=== PATIENT | female | born 1945 | race Caucasian/White ===

== ENCOUNTER 2017-07-08 22:13 | Emergency (ER) | payer MEDICARE, BC ==
[2017-07-08] MEDS ORDERED: Ondansetron INJ* 2 MG/ML VIAL IV ONE (22:33)
[2017-07-08] MEDS ORDERED: fentaNYL* 50 MCG/ML 2 ML VIAL (100 MCG VIAL) IV SLOW PU ONE ×2 (22:33→23:11)
[2017-07-09] MEDS ORDERED: fentaNYL* 50 MCG/ML 2 ML VIAL (100 MCG VIAL) ONE (00:17)
[2017-07-09] MEDS ORDERED: Midazolam* 1 MG/ML 10 ML VIAL (10 MG) ONE (00:18)
[2017-07-09] MEDS ORDERED: KETAMINE HCL* 50 MG/ML 10 ML VIAL ONE (00:18)
[2017-07-09 03:55] VITALS: BP 132/64
--- NOTE | 2017-07-09 04:52 | ED ---
Sherly Pelayo Julia, scribed for Emiliano Garcia MD on 07/08/17 at 2310 . Lower Extremity - HPI Summary HPI Summary: This patient is a 71 year old F BIBA to [facility] accompanied by with a chief complaint of R hip pain since 21:30 when she twisted hip while kneeling. The patient rates the pain 10/10 in severity. Patient believes she dislocated her hip. She dislocated her hip over the summer of 2016, and reports similar symptoms. Patient had her R hip replaced. Patient last ate at 18:00 - History of Current Complaint Chief Complaint: EDExtremityLower Stated Complaint: FALL/ HIP PAIN Time Seen by Provider: 07/08/17 22:24 Hx Obtained From: Patient Mechanism Of Injury: Twisted Onset of Pain: Immediate Onset/Duration: Still Present Pain Intensity: 10 Pain Scale Used: 0-10 Numeric Timing: Constant Location: Is Discrete @ - R hip Associated Signs And Symptoms: Positive: Negative Able to Bear Weight: No - Allergies/Home Medications Allergies/Adverse Reactions: Allergies Allergy/AdvReac Type Severity Reaction Status Date / Time Adhesive Tape AdvReac Intermediate Rash And Verified 02/04/17 09:12 [Tegaderm Dressing] Itching tegaderm Allergy Rash And Uncoded 02/04/17 09:12 Itching PMH/Surg Hx/FS Hx/Imm Hx Endocrine/Hematology History: Denies: Hx Diabetes, Hx Systemic Lupus Erythematosus Cardiovascular History: Denies: Hx Congestive Heart Failure, Hx Hypertension, Hx Pacemaker/ICD Comment Only: Other Cardiovascular Problems/Disorders - PORT 09/2013 Respiratory History: Reports: Hx Pleural Effusion, Other Respiratory Problems/ Disorders - SOB ON EXCERTION, HAS BEEN ON CHEMO Denies: Hx Asthma GI History: Reports: Hx Gastroesophageal Reflux Disease, Hx Hiatal Hernia History: Denies: Hx Dialysis, Hx Renal Disease Musculoskeletal History: Reports: Other Musculoskeletal History - right hip replacement Denies: Hx Rheumatoid Arthritis Sensory History: Denies: Hx Hearing Aid Psychiatric History: Reports: Hx Depression Denies: Hx Panic Disorder - Cancer History Cancer Type, Location and Year: Left breast CA, with mets Hx Chemotherapy: Yes Hx Radiation Therapy: No - Surgical History Surgery Procedure, Year, and Place: R hip replacement 2009 [facility] [place]Hi[place] and Salvador fundoplication (GERD) 2007,R inguinal exploratory surgery,D&C, POWER PORT RIGHT CHEST WALL; Infectious Disease History: No Infectious Disease History: Denies: Traveled Outside the [place] in Last 30 Days - Social History Alcohol Use: Rare Alcohol Amount: 1-2 x per year Substance Use Type: Reports: None Hx Tobacco Use: No Smoking Status (MU): Never Smoked Tobacco Review of Systems Negative: Fever Positive: Other - R hip pain possible dislocation All Other Systems Reviewed And Are Negative: Yes Physical Exam Triage Information Reviewed: Yes Vital Signs On Initial Exam: Initial Vitals Temp Pulse Resp BP Pulse Ox 97.6 F 76 16 152/68 93 07/08/17 22:23 07/08/17 22:23 07/08/17 22:23 07/08/17 22:23 07/08/17 22:23 Vital Signs Reviewed: Yes Skin: Positive: Skin Color Reflects Adequate Perfusion Head/Face: Positive: Normal Head/Face Inspection Eyes: Positive: Normal ENT: Positive: Normal ENT inspection Cardiovascular: Positive: Normal Abdomen Description: Positive: Nontender Musculoskeletal: Positive: Other - Patient is lying on left side with r leg supported due to pain. R hip tenderness Neurological: Positive: Normal Psychiatric: Positive: Normal Procedures - Joint Reduction Joint Reduction Site: hip (R) Conscious Sedation: Yes - administered by Dr. Ulrich Pre-Procedure NV Exam: Yes - neuro intact Post Joint Reduction Film: no fracture seen - At 1:10 Patient signed consent form and agreed to procedure. ALLIs maneuver was used. Reduction was successful. Neuro exam was intact pre and post reduction. Post reduction XR reveals no fracture. Diagnostics - Vital Signs Vital Signs Temp Pulse Resp BP Pulse Ox 07/08/17 22:47 18 07/08/17 22:30 80 18 146/78 92 07/08/17 22:23 97.6 F 76 16 152/68 93 - Laboratory Lab Statement: Any lab studies that have been ordered have been reviewed, and results considered in the medical decision making process. - Radiology R Hip/Pelvis XR Radiology Interpretation Completed By: ED Physician - Superior disolcation of the R hip. R hip Radiology Interpretation Completed By: ED Physician - Reveals no fx post reduction Lower Extremity Course/Dx - Course Course Of Treatment: Patient presents with R hip pain and suspected dislocation. Patient has artifical R hip. R Hip XR reveals dislocation. Dr. Ulrich performed concious sedation.At 1:10 Patient signed consent form and agreed to procedure. ALLIs maneuver was used. Reduction was successful. Neuro exam was intact pre and post reduction. Post reduction XR reveals no fracture. Patient was given Fentanyl, Ketamine, Midazalom, and Zofran. Patient will be discharged with knee immobilizer and dx of hip dislocation. I instructed patient to follow up with her orthopedist. - Diagnoses Provider Diagnoses: Hip dislocation, right - Physician Notifications Discussed Care Of Patient With: Andrea Ulrich - anesthesia Time Discussed With Above Provider: 23:55 Instructed by Provider To: Other - Dr. Ulrich will evaluate patient when he is finished in the OR. Discharge - Discharge Plan Condition: Stable Disposition: HOME Patient Education Materials: Hip Dislocation (ED) Referrals: Gustavo Lincoln MD [Primary Care Provider] - Additional Instructions: Wear knee immobilizer. Follow up with orthopedist this week. RETURN TO THE EMERGENCY DEPARTMENT FOR CHANGING OR WORSENING SYMPTOMS. The documentation as recorded by the Sherly del rio Julia accurately reflects the service I personally performed and the decisions made by me, Emiliano Garcia MD.
--- NOTE | 2017-07-09 07:35 | RAD ---
INDICATION: Right hip pain possible dislocation. COMPARISON: Comparison is made with a prior CT of the abdomen and pelvis from February 04, 2017. TECHNIQUE: An AP view of the pelvis and frontal and lateral views of the right hip were obtained. FINDINGS: The patient is status post total right hip replacement surgery. There is superior posterior dislocation of the femoral head prosthesis. No fracture is seen. IMPRESSION: DISLOCATION OF THE FEMORAL HEAD PROSTHESES.
--- NOTE | 2017-07-09 07:39 | RAD ---
HISTORY: Post reduction COMPARISONS: July 08, 2017 at 11:36 PM VIEWS: 2, frontal views of the right hip FINDINGS: BONE DENSITY: Normal. BONES: The patient is status post right hip arthroplasty. JOINTS: The patient is status post right hip arthroplasty. ALIGNMENT: On the initial film at 1:20 AM, there is persistent superior dislocation of the femoral component of the prosthesis. On subsequent film at 1:27 AM, the alignment is near-anatomic. SOFT TISSUES: Unremarkable. OTHER FINDINGS: None. IMPRESSION: INTERVAL REDUCTION OF DISLOCATION OF RIGHT HIP PROSTHESIS
== END 2017-07-09 02:20 | disposition home or self-care (01) ==
LOC: ED 22:13
DX: S73.004A Unspecified dislocation of right hip, initial encounter (principal); M25.551 Pain in right hip; W19.XXXA Unspecified fall, initial encounter; Y92.9 Unspecified place or not applicable
CPT/HCPCS: 96374; 96375; 99285; J2250; J2405; J3010

== ENCOUNTER 2017-10-22 19:23 | Emergency (ER) | payer MEDICARE, BC ==
[2017-10-22] MEDS ORDERED: Ondansetron ODT TAB* 4 MG PO ONE (19:36)
[2017-10-22] MEDS ORDERED: Morphine INJ* 10 MG/ML 1 ML CARPUJECT IV ONE (19:36)
[2017-10-22] MEDS ORDERED: Morphine VIAL* 4 MG/ML VIAL (1 ml vial) IV ONE (19:48)
--- NOTE | 2017-10-22 20:19 | RAD ---
INDICATION: Subjective sense of a dislocated right hip COMPARISON: Similar radiograph July 14, 2017 TECHNIQUE: 3 views of the right hip were obtained. FINDINGS: The right hip prosthesis is dislocated with the femoral component dislocated posteriorly and superiorly relative to the acetabular component. There is no radiographically apparent fracture. IMPRESSION: Dislocated right hip prosthesis.
[2017-10-22] MEDS ORDERED: Midazolam* 1 MG/ML 10 ML VIAL (10 MG) ONE (20:20)
[2017-10-22] MEDS ORDERED: fentaNYL* 50 MCG/ML 2 ML VIAL (100 MCG VIAL) ONE ×2 (20:20→22:17)
[2017-10-22] MEDS ORDERED: Flumazenil* 0.1 MG/ML 5 ML MDV ONE (20:21)
[2017-10-22] MEDS ORDERED: Naloxone* 0.4 MG/ML 10 ML VIAL ONE (20:21)
--- NOTE | 2017-10-22 21:50 | RAD ---
INDICATION: Right hip dislocation COMPARISON: Most recent comparison chest x-rays dated June 24, 2017 TECHNIQUE: Single AP portable view of the chest was obtained. FINDINGS: Image quality is compromised due to the relative inferiority of a portable chest x-ray. There is a right subclavian vein Mediport with the tip terminating at the superior vena cava. The heart and mediastinum exhibit normal size and contour. There is density obscuring the central nestor bilaterally as well as obscuring the left hemidiaphragm. Visualized bones are normal for the patient's age. IMPRESSION: Chest x-ray findings are most consistent with vascular congestion possibly with pleural effusion at the left lung base.
--- NOTE | 2017-10-22 21:52 | RAD ---
INDICATION: Dislocated right hip Comparison: Similar radiograph acquired the same day at 2002 hours TECHNIQUE: An AP view of the pelvis was obtained at 2012 hours. FINDINGS: There is persistent dislocation of the right prostatic hip with the femoral head displaced superiorly relative to the acetabular pole. IMPRESSION: Dislocated right prosthetic hip.
[2017-10-22] MEDS ORDERED: Midazolam* 1 MG/ML 5 ML VIAL (5 MG) ONE (22:17)
[2017-10-22] MEDS ORDERED: KETAMINE HCL* 50 MG/ML 10 ML VIAL ONE (22:17)
[2017-10-22] MEDS ORDERED: Succinylcholine* 20 MG/ML 10 ML VIAL ONE (23:04)
[2017-10-22] MEDS ORDERED: Propofol* 10 MG/ML 20 ML BTL IV PUSH ONE (23:04)
[2017-10-23 03:49] VITALS: BP 140/83
--- NOTE | 2017-10-23 05:57 | ED ---
Julian Pelayo Rebecca, scribed for Benjamin Salas MD on 10/22/17 at 1941 . Lower Extremity - HPI Summary HPI Summary: Pt is a 72 y/o F BIBA who presents to ED c/o R hip pain. Pt was getting into her car at about 1855 when she suspects the hip dislocated. Pain is currently moderate, ranked 7/10. Sx aggravated by movement. Similar episodes 1 year ago and in 2016, though she states it does not feel as badly dislocated as it was previously. Is not on blood thinners. PSHx R hip replacement. PMHx metastatic breast CA - oncologist is Dr. Lema. - History of Current Complaint Chief Complaint: EDExtremityLower Stated Complaint: RT HIP DISLOCATION Time Seen by Provider: 10/22/17 19:31 Hx Obtained From: Patient Mechanism Of Injury: Other - Getting into car Onset of Pain: Immediate, Prior to Arrival Onset/Duration: Still Present Severity Currently: Moderate Pain Intensity: 7 Pain Scale Used: 0-10 Numeric Location: Is Discrete @ - R hip Associated Signs And Symptoms: Positive: Negative Aggravating Factor(s): Movement - Allergies/Home Medications Allergies/Adverse Reactions: Allergies Allergy/AdvReac Type Severity Reaction Status Date / Time Adhesive Tape AdvReac Intermediate Rash And Verified 02/04/17 09:12 [Tegaderm Dressing] Itching tegaderm Allergy Rash And Uncoded 02/04/17 09:12 Itching Home Medications: Home Medications Acetaminophen TAB* [Tylenol TAB*] 325 mg PO Q4H PRN 10/22/17 [History Confirmed 10/22/17] Escitalopram (NF) [Lexapro 20 mg (NF)] 20 mg PO DAILY 10/22/17 [History Confirmed 10/22/17] Letrozole (NF) [Femara (NF)] 2.5 mg PO DAILY 10/22/17 [History Confirmed ] Palbociclib [Ibrance] 75 mg PO DAILY 10/22/17 [History Confirmed 10/22/17] Prochlorperazine TAB* [Compazine Tab*] 10 mg PO DAILY 10/22/17 [History Confirmed 10/22/17] traZODone TAB* [Desyrel TAB*] 50 mg PO BEDTIME PRN 10/22/17 [History Confirmed 10/22/17] PMH/Surg Hx/FS Hx/Imm Hx Endocrine/Hematology History: Denies: Hx Diabetes, Hx Systemic Lupus Erythematosus Cardiovascular History: Denies: Hx Congestive Heart Failure, Hx Hypertension, Hx Pacemaker/ICD Comment Only: Other Cardiovascular Problems/Disorders - PORT 09/2013 Respiratory History: Reports: Hx Pleural Effusion, Other Respiratory Problems/ Disorders - SOB ON EXCERTION, HAS BEEN ON CHEMO Denies: Hx Asthma GI History: Reports: Hx Gastroesophageal Reflux Disease, Hx Hiatal Hernia History: Denies: Hx Dialysis, Hx Renal Disease Musculoskeletal History: Reports: Other Musculoskeletal History - right hip replacement Denies: Hx Rheumatoid Arthritis Sensory History: Denies: Hx Hearing Aid Psychiatric History: Reports: Hx Depression Denies: Hx Panic Disorder - Cancer History Cancer Type, Location and Year: Left breast CA, with mets Hx Chemotherapy: Yes Hx Radiation Therapy: No - Surgical History Surgery Procedure, Year, and Place: R hip replacement 2009 [facility],Hiatal hernia repair and Salvador fundoplication (GERD) 2007,R inguinal exploratory surgery,D&C, POWER PORT RIGHT CHEST WALL; Infectious Disease History: No Infectious Disease History: Denies: Traveled Outside the US in Last 30 Days - Family History Known Family History: Positive: Other - CVA, lymphoma - Social History Alcohol Use: Rare Alcohol Amount: 1-2 x per year Substance Use Type: Reports: None Hx Tobacco Use: No Smoking Status (MU): Never Smoked Tobacco Review of Systems Negative: Fever Positive: Arthralgia - R hip pain All Other Systems Reviewed And Are Negative: Yes Physical Exam - Summary Physical Exam Summary: General: well-appearing, mild pain distress Skin: warm, color reflects adequate perfusion, dry Head: normal Eyes: EOMI, MEE ENT: normal Neck: supple, nontender Respiratory: CTA, breath sounds present Cardiovascular: RRR Abdomen: soft, nontender Bowel: present Musculoskeletal: strength intact, the right leg is shortened, not externally rotated Neurological: normal, sensory/motor intact, A&O x3 Psychological: affect/mood appropriate Triage Information Reviewed: Yes Vital Signs On Initial Exam: Initial Vitals Temp Pulse Resp BP Pulse Ox 98.2 F 70 16 154/72 93 10/22/17 19:34 10/22/17 19:34 10/22/17 19:34 10/22/17 19:34 10/22/17 19:34 Vital Signs Reviewed: Yes Procedures - Joint Reduction Joint Reduction Site: hip (R) Conscious Sedation: Yes - Moderate sedation - 5 Versed, 50 fentanyl Reduction Attempts: 2 Pre-Procedure NV Exam: Yes - Intact Post Joint Reduction Film: joint not reduced Diagnostics - Vital Signs Vital Signs Temp Pulse Resp BP Pulse Ox 10/22/17 19:34 98.2 F 70 16 154/72 93 - Laboratory Lab Statement: Any lab studies that have been ordered have been reviewed, and results considered in the medical decision making process. - Radiology Hip/Pelvis XR Xray Interpretation: Positive (See Comments) - Dislocated right hip prosthesis. ED physician reviewed this radioloy report. Radiology Interpretation Completed By: Radiologist Hip/Pelvis XR #2 Xray Interpretation: Positive (See Comments) - Dislocated right prosthetic hip. ED physician reviewed this radiology report. Radiology Interpretation Completed By: Radiologist CXR Xray Interpretation: Positive (See Comments) - Chest x-ray findings are most consistent with vascular congestion possibly with pleural effusion at the left lung base. ED physician reviewed this radiology report. Radiology Interpretation Completed By: Radiologist Hip/Pelvix XR #3 Radiology Interpretation Completed By: ED Physician - Hip is in place. Re-Evaluation - Re-Evaluation First Eval Re-Evaluation Time: 20:08 Comment: Discussing XR results with the pt. Second Eval Re-Evaluation Time: 20:48 Comment: Reduction attempted Third Eval Re-Evaluation Time: 21:34 Comment: Reported that Dr. Brush did the original hip replacement. Lower Extremity Course/Dx - Course Course Of Treatment: CLOSED HIP REDUCTION ATTEMPTED UNDER MODERATE SEDATION WHICH WAS UNSUCESSFUL. DR BRUSH, ORTHOPEDICS, SAW PATIENT IN ED AND, WITH ANESTHESIA WHO USED PROPOFOL, KETAMINE, AND SUCCINYLCHOLINE WAS ABLE TO REDUCE THE HIP IN THE ED. F/U ORTHOPEDICS; RETURN IF WORSE. Assessment/Plan: Medications reviewed. Allergies reviewed. BP noted and advised to follow up with PCP. - Diagnoses Provider Diagnoses: Elevated BP without diagnosis of hypertension, Recurrent dislocation, right hip - Physician Notifications Discussed Care Of Patient With: Harrison Brush Time Discussed With Above Provider: 21:40 Instructed by Provider To: Other - Will evaluate the pt in the ED and do reduction. Discharge - Sign-Out/Discharge Documenting (check all that apply): Discharge/Admit/Transfer - Discharge - Discharge Plan Condition: Stable Disposition: HOME Patient Education Materials: Hip Dislocation (ED) Referrals: Gustavo Lincoln MD [Primary Care Provider] - [facility] [Outside] Additional Instructions: FOLLOW UP WITH YOUR ORTHOPEDIST. RETURN TO THE EMERGENCY DEPARTMENT FOR ANY WORSENING OF YOUR CONDITION OR QUESTIONS OR CONCERNS. - Billing Disposition and Condition Condition: STABLE Disposition: HOME The documentation as recorded by the Julian del rio Rebecca accurately reflects the service I personally performed and the decisions made by me, Benjamin Salas MD.
--- NOTE | 2017-10-23 07:25 | RAD ---
INDICATION: Right hip dislocation status post reduction. COMPARISON: Comparison is made with a prior x-ray study of the pelvis of the same date. TECHNIQUE: An AP view of the right hip was obtained. FINDINGS: The patient is status post total right hip replacement. There has been interval reduction of the previously noted superior dislocation of the femoral prostheses. The bones and prostheses are in normal alignment. No fracture is seen. IMPRESSION: STATUS POST EXTERNAL REDUCTION THE BONES AND PROSTHESES ARE IN NORMAL ALIGNMENT.
--- NOTE | 2017-10-23 13:41 | CONS ---
CC: Gustavo Lincoln MD * ORTHOPEDIC CONSULT REPORT: DATE OF CONSULT: 10/22/17 - EMERGENCY DEPT ATTENDING PHYSICIAN: Harrison Duarte MD CHIEF COMPLAINT: Right hip. HISTORY OF PRESENT ILLNESS: Mrs. Bryant is a 72-year-old female who I have not seen in 7 years. She had undergone a right total hip arthroplasty and had done well until this past January. She was in [place] and was stepping and moved in an odd fashion and sustained a right hip dislocation. Unfortunately, she has dislocated again since then this past June and last night had twisted again and once again dislocated. Other than the hip, nothing else does hurt. She did not fall with the dislocation as she was twisting from a sitting position when that had occurred. We talked a little bit about the hip and she reports prior to this she forgot that she even had a hip replacement and is still very pleased about having undergone surgery. When she first presented to the emergency room, the ER had tried to do some conscious sedation and had given her 5 mg of Versed and 4 mg of morphine, but her O2 sats dropped. A chest x-ray was obtained, which showed a pleural effusion, but she does have a history of this because of the metastatic breast cancer to her lungs. The ED did still try to reduce the hip, but were unsuccessful and had called me and I told him that I would head in and do the reduction. PREVIOUS MEDICAL HISTORY: Metastatic breast cancer, GERD/peptic ulcer disease. CURRENT MEDICATIONS: 1. Ibrance 100 mg. 2. Prochlorperazine maleate 10 mg. 3. Trazodone 100 mg. 4. Escitalopram oxalate 20 mg daily. 5. Letrozole 2.5 mg daily. 6. Melatonin at night. MEDICATION ALLERGIES: TAPE and TEGADERM. PHYSICAL EXAM: General: Mature female, in no apparent distress, lying on the stretcher. Even though she just had conscious sedation half an hour ago, she is awake and alert. Right leg: The right leg is shortened and externally rotated. She can easily plantar and dorsiflexion the ankle and has good sensation over the dorsum of the foot. Any sort of leg motion is painful for her. DIAGNOSTIC STUDIES/LAB: X-rays of the hip taken twice are available for review. It can be seen, she is dislocated. ASSESSMENT: Dislocated right total hip arthroplasty. PLAN: I called anesthesia and the OR team and as I felt we need to take her to the OR, but Dr. Ulrich reports that he was here when she dislocated last time will be comfortable doing this in the emergency room. New consent set was filled out and she was once again given conscious sedation. With the first round, I was unable to reduce her, but then with a little succinylcholine, I was then able to quite easily reduce her. She was then stable as I flexed and the maneuvered her. Followup x- ray was obtained, which showed the hip to be nicely dislocated. As she woke up, she reported that she felt quite good and would like to leave for [place] this evening. I wrote out a list of dislocation precautions, specifically these are the same ones that we do initially postoperatively where she should not flex the hip past 90 degrees, abduct the leg past midline, and she always has the toes pointing straight forward or outwards towards the right. I also wrote out for her that the safest position is slightly slouched with the legs abducted and the toes pointing out at the 230. Considering that, she does appear comfortable. She can go to [place]. I also discussed with her that revision of the hip is something that would help, if this continues to dislocate. Currently, she is still essentially doing all activities without any fear of the hip dislocating, this is good considering the breast cancer and what she is doing, but if this starts to interfere more, I believe trying at least a constrained hip as a components of well fixed would be a reasonable step. She will give us a call when she returns from [place] and we will see how she is doing. [id number]/[facility] #: [id number] JOSÉ
== END 2017-10-23 03:49 | disposition home or self-care (01) ==
LOC: ED 19:23
DX: M25.551 Pain in right hip (principal); R03.0 Elevated blood-pressure reading, without diagnosis of hypertension; M24.451 Recurrent dislocation, right hip; Z85.3 Personal history of malignant neoplasm of breast
CPT/HCPCS: 71045; 72170; 96374; 96375; 99285; A9270-GY; J0330; J2250; J2270; J2310; J2704; J3010

== ENCOUNTER 2019-02-22 17:41 | Emergency (ER) | payer MEDICARE, OTHER ==
--- OUTSIDE RECORDS SUMMARY | 2019-02-22 17:59 | XMS REPORT | Continuity of Care Document ---
:1945 External Reference #:[id number] Author Name Latoya Resendez Address [address] [place] [address] Care Team Providers Name Role Phone Shaun Cummings - Surgery Care Team Information Social Work Assistant [phone] Harrison Duarte MD - Orthopaedic Care Team Information Social Work Assistant Surgery [facility] Radiology Department - Diagnostic Care Team Information Social Work Assistant Radiology Cornel Joseph - Thoracic Surgery Care Team Information Social Work Assistant (Cardiothoracic Vascular Surgery) Les Richardson - Ophthalmology Care Team Information Social Work Assistant Problems Active Problems Provider Date Hyperlipidemia Gustavo Lincoln M.D. Onset: 08/21/2006 Depressive disorder Gustavo Lincoln M.D. Onset: 08/21/2006 Anxiety state Gustavo Lincoln M.D. Onset: 08/21/2006 Allergic rhinitis Gustavo Lincoln M.D. Onset: 08/21/2006 Nuclear senile cataract Gustavo Lincoln M.D. Onset: 01/31/2016 Malignant neoplasm of female breast Gustavo Lincoln M.D. Onset: 01/31/2016 Social History Type Date Description Comments Sex Unknown Tobacco Use Start: Unknown Nonsmoker ETOH Use Denies alcohol use Tobacco Use Start: Unknown Patient has never smoked Smoking Status Reviewed: 02/09/19 Patient has never smoked Allergies, Adverse Reactions, Alerts Description No Known Drug Allergies Medications Active Medications SIG Qnty Indications Ordering Date Provider Bupropion Hydrochloride 1 po qd 30tabs Marlee 02/09/2019 ER (SR) [place], Afnp-C 100mg Tablets ER 12HR Lexapro take 1 tablet 90tabs Gustavo Lincoln, 09/09/2002 20mg Tablets by mouth one M.D. time daily Compazine daily Unknown 5mg Tablets Letrozole 1 po qd Unknown 2.5mg Tablets Ibrance 21 day Unknown 75mg Capsules period-every other day Prochlorperazine Maleate take two Unknown 10mg tablets at Tablets bedtime Immunizations CPT Code Status Date Vaccine Lot # [id number] Given 09/24/2013 Pneumococcal Immunization [id number] Given 09/24/2013 Tdap Tetanus, W Pertussis [id number] Given 08/31/2004 Td Immunization, For Use In Individuals 7 Years Or Older [id number] Given 04/28/2002 DO Not Use Split Influenza Virus Vaccine Vital Signs Date Vital Result Comment 02/09/2019 3:40pm BP Systolic 100 mmHg BP Diastolic 60 mmHg Heart Rate 84 /min Body Temperature 98.6 F Respiratory Rate 16 /min Height 64.75 inches 5'4.75" Weight 202.00 lb BMI (Body Mass Index) 33.9 kg/m2 09/08/2017 4:02pm BP Systolic 110 mmHg BP Diastolic 64 mmHg Heart Rate 76 /min Body Temperature 98.5 F Respiratory Rate 20 /min Height 64.75 inches 5'4.75" Weight 221.50 lb BMI (Body Mass Index) 37.1 kg/m2 Results Test Date Facility Test Result H/L Range Note Basic Metabolic 02/09/2019 [facility](fma) Sodium 143 mEq/L 134-149 Profile Potassium 3.8 mEq/L 3.6-5.5 Chloride 106 mEq/L 94-112 Carbon Dioxide 29 mEq/L 21-32 Glucose 136 mg/dL High 70-105 1 BUN 14 mg/dL 6-26 Creatinine 0.9 mg/dL 0.6-1.4 BUN/Creat Ratio 15.6 CALC 8.0-36.0 Calcium 8.8 mg/dL 8.6-10.2 GFR Non- >60 ml/min/1.73m^ >=60 GFR >60 ml/min/1.73m^ >=60 Laboratory test finding 02/09/2019 [facility](fma) TSH 2.41 mIU/L 0.50-6.00 Free T4 1.19 ng/dL 0.75-1.54 Laboratory test 02/09/2019 [facility] Hemoglobin A1c 5.5% % 4.1- 5.7 finding (607)- - (Fma) CBC Auto Diff 01/12/2019 [facility] White Blood Count 2.0 Low 3.5-10.8 10^3/uL Red Blood Count 2.39 10^6/uL Low 3.70-4.87 Hemoglobin 9.2 g/dL Low 12.0-16.0 Hematocrit 27 % Low 35-47 Mean Corpuscular Volume 114 fL High 80-97 Mean Corpuscular Hemoglobin 39 pg High 27-31 Mean Corpuscular HGB Conc 34 g/dL Normal 31-36 Red Cell Distribution Width 19 % High 10-15 Abs Neutrophils 1.2 10^3/uL Low 1.5-7.7 Platelet Count 396 10^3/uL Normal 150-450 2 Abs Lymphocytes 0.6 10^3/uL Low 1.0-4.8 Abs Monocytes 0.2 10^3/uL Normal 0-0.8 Abs Eosinophils 0.0 10^3/uL Normal 0-0.6 Abs Basophils 0.0 10^3/uL Normal 0-0.2 Abs Nucleated RBC 0.0 10^3/uL Granulocyte % 58.2 % Lymphocyte % 27.7 % Monocyte % 10.4 % Eosinophil % 1.6 % Basophil % 2.1 % Nucleated Red Blood Cells % 0.1 Large Platelets Present Cell Morphology 01/12/2019 [facility] Macrocytosis 2+ Anisocytosis 2+ Comp Metabolic Panel 01/12/2019 [facility] Sodium 142 mmol/L Normal 135-145 Potassium 3.7 mmol/L Normal 3.5-5.0 Chloride 110 mmol/L Normal 101-111 Co2 Carbon Dioxide 26 mmol/L Normal 22-32 Anion Gap 6 mmol/L Normal 2-11 Glucose 133 mg/dL High 70-100 Blood Urea Nitrogen 16 mg/dL Normal 6-24 Creatinine 0.91 mg/dL Normal 0.51-0.95 BUN/Creatinine Ratio 17.6 Normal 8-20 Calcium 8.7 mg/dL Normal 8.6-10.3 Total Protein 6.1 g/dL Low 6.4-8.9 Albumin 3.8 g/dL Normal 3.2-5.2 Globulin 2.3 g/dL Normal 2-4 Albumin/Globulin Ratio 1.7 Normal 1-3 Total Bilirubin 0.90 mg/dL Normal 0.2-1.0 Alkaline Phosphatase 71 U/L Normal 34-104 Alt 8 U/L Normal 7-52 Ast 17 U/L Normal 13-39 Egfr Non- 60.4 >60 Egfr 73.1 >60 3 Laboratory test finding 01/12/2019 [facility] Breast Carcinoma 36.0 U/mL <= 38.0 4 Ag(Ca27.29) Anti Nuclear Antibody 0.2 U 5 CBC Auto Diff 12/08/2018 [facility] White Blood Count 2.3 10^3/uL Low 3.5-10.8 Red Blood Count 3.07 10^6/uL Low 3.70-4.87 Hemoglobin 11.1 g/dL Low 12.0-16.0 Hematocrit 34 % Low 35-47 Mean Corpuscular Volume 111 fL High 80-97 Mean Corpuscular Hemoglobin 36 pg High 27-31 Mean Corpuscular HGB Conc 33 g/dL Normal 31-36 Red Cell Distribution Width 17 % High 10-15 Platelet Count 362 10^3/uL Normal 150-450 6 Mean Platelet Volume 11.8 fL High 7.4-10.4 Manual Differential 12/08/2018 [facility] Platelet Morphology Giant Neutrophil % 54.0 % Lymphocytes % 40.0 % Monocytes % 5.0 % Eosinophils % 1.0 % Macrocytosis 2+ Abs Neutrophils 1.2 10^3/uL Low 1.5-7.7 Abs Lymphocytes 0.9 10^3/uL Low 1.0-4.8 Abs Monocytes 0.1 10^3/uL Normal 0-0.8 Abs Eosinophils 0.0 10^3/uL Normal 0-0.6 CBC Auto Diff 12/01/2018 [facility] White Blood Count 2.0 10^3/uL Low 3.5-10.8 Red Blood Count 2.94 10^6/uL Low 3.70-4.87 Hemoglobin 11.0 g/dL Low 12.0-16.0 Hematocrit 33 % Low 35-47 Mean Corpuscular Volume 111 fL High 80-97 Mean Corpuscular Hemoglobin 37 pg High 27-31 Mean Corpuscular HGB Conc 34 g/dL Normal 31-36 Red Cell Distribution Width 18 % High 10-15 Abs Neutrophils 0.8 10^3/uL Low 1.5-7.7 Abs Lymphocytes 0.9 10^3/uL Low 1.0-4.8 Abs Monocytes 0.2 10^3/uL Normal 0-0.8 Abs Eosinophils 0.0 10^3/uL Normal 0-0.6 Abs Basophils 0.0 10^3/uL Normal 0-0.2 Abs Nucleated RBC 0.0 10^3/uL Granulocyte % 39.0 % Lymphocyte % 46.9 % Monocyte % 11.3 % Eosinophil % 1.7 % Basophil % 1.1 % Nucleated Red Blood Cells % 0.1 Platelet Count 250 10^3/uL Normal 150-450 7 Mean Platelet Volume 10.3 fL Normal 7.4-10.4 Laboratory test finding 12/01/2018 [facility] Vitamin B12 151 pg/mL Low 180-914 8 Methylmalonic Acid Mma 0.16 nmol/mL <=0.40 9 Laboratory test 11/24/2018 [facility] Breast Carcinoma 28.2 U/mL <=38.0 10 finding Ag(Ca27.29) CBC Auto Diff 11/24/2018 [facility] White Blood Count 1.0 10^3/uL Low 3.5-10.8 Red Blood Count 2.57 10^6/uL Low 3.70-4.87 Hemoglobin 9.7 g/dL Low 12.0-16.0 Hematocrit 28 % Low 35-47 Mean Corpuscular Volume 110 fL High 80-97 Mean Corpuscular Hemoglobin 38 pg High 27-31 Mean Corpuscular HGB Conc 34 g/dL Normal 31-36 Red Cell Distribution Width 16 % High 10-15 Abs Neutrophils 0.4 10^3/uL Low 1.5-7.7 Abs Lymphocytes 0.4 10^3/uL Low 1.0-4.8 Abs Monocytes 0.1 10^3/uL Normal 0-0.8 Abs Eosinophils 0.0 10^3/uL Normal 0-0.6 Abs Basophils 0.0 10^3/uL Normal 0-0.2 Abs Nucleated RBC 0.0 10^3/uL Granulocyte % 40.8 % Lymphocyte % 44.2 % Monocyte % 11.7 % Eosinophil % 2.3 % Basophil % 1.0 % Nucleated Red Blood Cells % 0.3 Giant Platelets Present Large Platelets Present Platelet Count 80 10^3/uL Low 150-450 11 Mean Platelet Volume 11.9 fL High 7.4-10.4 Comp Metabolic Panel 11/24/2018 [facility] Sodium 141 mmol/L Normal 135-145 Potassium 3.6 mmol/L Normal 3.5-5.0 Chloride 108 mmol/L Normal 101-111 Co2 Carbon Dioxide 30 mmol/L Normal 22-32 Anion Gap 3 mmol/L Normal 2-11 Glucose 88 mg/dL Normal 70-100 Blood Urea Nitrogen 15 mg/dL Normal 6-24 Creatinine 0.88 mg/dL Normal 0.51-0.95 BUN/Creatinine Ratio 17.0 Normal 8-20 Calcium 8.9 mg/dL Normal 8.6-10.3 Total Protein 5.7 g/dL Low 6.4-8.9 Albumin 3.6 g/dL Normal 3.2-5.2 Globulin 2.1 g/dL Normal 2-4 Albumin/Globulin Ratio 1.7 Normal 1-3 Total Bilirubin 1.40 mg/dL High 0.2-1.0 Alkaline Phosphatase 70 U/L Normal 34-104 Alt 9 U/L Normal 7-52 Ast 18 U/L Normal 13-39 Egfr Non- 62.8 >60 Egfr 76.0 >60 12 CBC Auto Diff 10/27/2018 [facility] White Blood Count 2.3 10^3/uL Low 3.5-10.8 Red Blood Count 3.27 10^6/uL Low 3.70-4.87 Hemoglobin 11.7 g/dL Low 12.0-16.0 Hematocrit 35 % Normal 35-47 Mean Corpuscular Volume 107 fL High 80-97 Mean Corpuscular Hemoglobin 36 pg High 27-31 Mean Corpuscular HGB Conc 33 g/dL Normal 31-36 Red Cell Distribution Width 17 % High 10.5-15 Platelet Count 220 10^3/uL Normal 150-450 13 Mean Platelet Volume 11.0 fL High 7.4-10.4 Manual Differential 10/27/2018 [facility] Platelet Morphology Giant Neutrophil % 48.0 % Lymphocytes % 45.0 % Monocytes % 4.0 % Eosinophils % 2.0 % Basophil % 1.0 % Macrocytosis 1+ Polychromasia 1+ Abs Neutrophils 1.1 10^3/uL Low 1.5-7.7 Abs Lymphocytes 1.0 10^3/uL Normal 1.0-4.8 Abs Monocytes 0.1 10^3/uL Normal 0-0.8 Abs Eosinophils 0.1 10^3/uL Normal 0-0.6 Abs Basophils 0.0 10^3/uL Normal 0-0.2 Comp Metabolic Panel 10/20/2018 [facility] Sodium 142 mmol/L Normal 135-145 Potassium 3.5 mmol/L Normal 3.5-5.0 Chloride 108 mmol/L Normal 101-111 Co2 Carbon Dioxide 29 mmol/L Normal 22-32 Anion Gap 5 mmol/L Normal 2-11 Glucose 96 mg/dL Normal 70-100 Blood Urea Nitrogen 16 mg/dL Normal 6-24 Creatinine 0.90 mg/dL Normal 0.51-0.95 BUN/Creatinine Ratio 17.8 Normal 8-20 Calcium 9.0 mg/dL Normal 8.6-10.3 Total Protein 6.0 g/dL Low 6.4-8.9 Albumin 3.8 g/dL Normal 3.2-5.2 Globulin 2.2 g/dL Normal 2-4 Albumin/Globulin Ratio 1.7 Normal 1-3 Total Bilirubin 1.30 mg/dL High 0.2-1.0 Alkaline Phosphatase 67 U/L Normal 34-104 Alt 7 U/L Normal 7-52 Ast 16 U/L Normal 13-39 Egfr Non- 61.2 >60 Egfr 74.1 >60 14 CBC Auto Diff 10/20/2018 [facility] White Blood Count 1.4 10^3/uL Low 3.5-10.8 Red Blood Count 3.07 10^6/uL Low 3.70-4.87 Hemoglobin 11.3 g/dL Low 12.0-16.0 Hematocrit 33 % Low 35-47 Mean Corpuscular Volume 107 fL High 80-97 Mean Corpuscular Hemoglobin 37 pg High 27-31 Mean Corpuscular HGB Conc 34 g/dL Normal 31-36 Red Cell Distribution Width 17 % High 10.5-15 Platelet Count 81 10^3/uL Low 150-450 15 Mean Platelet Volume 11.4 fL High 7.4-10.4 Abs Neutrophils 0.5 10^3/uL Low 1.5-7.7 16 Abs Lymphocytes 0.7 10^3/uL Low 1.0-4.8 Abs Monocytes 0.2 10^3/uL Normal 0-0.8 Abs Eosinophils 0.0 10^3/uL Normal 0-0.6 Abs Basophils 0.0 10^3/uL Normal 0-0.2 Abs Nucleated RBC 0.0 10^3/uL Granulocyte % 34.8 % Lymphocyte % 49.4 % Monocyte % 12.7 % Eosinophil % 2.4 % Basophil % 0.7 % Nucleated Red Blood Cells % 0.2 Laboratory test 10/20/2018 [facility] Breast Carcinoma 24.8 U/mL <=38.0 17 finding Ag(Ca27.29) CBC Auto Diff 09/22/2018 [facility] White Blood Count 2.3 10^3/uL Low 3.5-10.8 Red Blood Count 3.46 10^6/uL Low 3.70-4.87 Hemoglobin 12.2 g/dL Normal 12.0-16.0 Hematocrit 37 % Normal 33-41 Mean Corpuscular Volume 106 fL High 80-97 Mean Corpuscular Hemoglobin 35 pg High 27-31 Mean Corpuscular HGB Conc 34 g/dL Normal 31-36 Red Cell Distribution Width 16 % High 10.5-15 Abs Nucleated RBC 0 10^3/uL Nucleated Red Blood Cells % 0.1 Platelet Count 197 10^3/uL Normal 150-450 Mean Platelet Volume 9.9 fL Normal 7.4-10.4 Manual Differential 09/22/2018 [facility] Platelet Morphology Large Neutrophil % 53 % Lymphocytes % 30 % Monocytes % 14 % Eosinophils % 3 % Abs Neutrophils 1.2 10^3/uL Low 1.5-7.7 Abs Lymphocytes 0.7 10^3/uL Low 1.0-4.8 Abs Monocytes 0.3 10^3/uL Normal 0-0.8 Abs Eosinophils 0.1 10^3/uL Normal 0-0.6 Macrocytosis 1+ Anisocytosis 1+ Comp Metabolic Panel 09/15/2018 [facility] Sodium 141 mmol/L Normal 135-145 Potassium 3.5 mmol/L Normal 3.5-5.0 Chloride 107 mmol/L Normal 101-111 Co2 Carbon Dioxide 28 mmol/L Normal 22-32 Anion Gap 6 mmol/L Normal 2-11 Glucose 115 mg/dL High 70-100 Blood Urea Nitrogen 19 mg/dL Normal 6-24 Creatinine 0.87 mg/dL Normal 0.51-0.95 BUN/Creatinine Ratio 21.8 High 8-20 Calcium 8.8 mg/dL Normal 8.6-10.3 Total Protein 6.0 g/dL Low 6.4-8.9 Albumin 3.7 g/dL Normal 3.2-5.2 Globulin 2.3 g/dL Normal 2-4 Albumin/Globulin Ratio 1.6 Normal 1-3 Total Bilirubin 1.00 mg/dL Normal 0.2-1.0 Alkaline Phosphatase 75 U/L Normal 34-104 Alt 6 U/L Low 7-52 Ast 15 U/L Normal 13-39 Egfr Non- 63.6 >60 Egfr 77.0 >60 18 CBC Auto Diff 09/15/2018 [facility] White Blood Count 1.5 10^3/uL Low 3.5-10.8 Red Blood Count 3.41 10^6/uL Low 3.70-4.87 Hemoglobin 12.4 g/dL Normal 12.0-16.0 Hematocrit 36 % Normal 33-41 Mean Corpuscular Volume 106 fL High 80-97 Mean Corpuscular Hemoglobin 36 pg High 27-31 Mean Corpuscular HGB Conc 34 g/dL Normal 31-36 Red Cell Distribution Width 15 % Normal 10.5-15 Platelet Count 73 10^3/uL Low 150-450 Mean Platelet Volume 8.9 fL Normal 7.4-10.4 Abs Neutrophils 0.7 10^3/uL Low 1.5-7.7 Abs Lymphocytes 0.6 10^3/uL Low 1.0-4.8 Abs Monocytes 0.2 10^3/uL Normal 0-0.8 Abs Eosinophils 0 10^3/uL Normal 0-0.6 Abs Basophils 0 10^3/uL Normal 0-0.2 Abs Nucleated RBC 0 10^3/uL Granulocyte % 46.4 % Lymphocyte % 39.2 % Monocyte % 11.3 % Eosinophil % 1.4 % Basophil % 1.7 % Nucleated Red Blood Cells % 0.1 Laboratory test finding 09/15/2018 [facility] Pathologist Review (SEE NOTE) 19 Breast Carcinoma Ag(Ca27.29) 25.7 U/mL <=38.0 20 CBC Auto Diff 08/18/2018 [facility] White Blood Count 2.8 10^3/uL Low 3.5-10.8 Red Blood Count 3.61 10^6/uL Low 4.00-5.40 Hemoglobin 12.9 g/dL Normal 12.0-16.0 Hematocrit 38 % Normal 35-47 Mean Corpuscular Volume 105 fL High 80-97 Mean Corpuscular Hemoglobin 36 pg High 27-31 Mean Corpuscular HGB Conc 34 g/dL Normal 31-36 Red Cell Distribution Width 16 % High 10.5-15 Abs Neutrophils 1.2 10^3/uL Low 1.5-7.7 Platelet Count 276 10^3/uL Normal 150-450 21 Mean Platelet Volume 11.4 fL High 7.4-10.4 Abs Lymphocytes 1.0 10^3/uL Normal 1.0-4.8 Abs Monocytes 0.4 10^3/uL Normal 0-0.8 Abs Eosinophils 0.1 10^3/uL Normal 0-0.6 Abs Basophils 0.1 10^3/uL Normal 0-0.2 Granulocyte % 43.1 % Lymphocyte % 36.6 % Monocyte % 13.1 % Eosinophil % 3.8 % Basophil % 3.4 % 1 NON-FASTING 2 Platelet count confirmed by estimate 3 Because ethnic data is not always readily available, this report includes an eGFR for both -Americans and non- Americans. The National Kidney Disease Education Program (NKDEP) does not endorse the use of the MDRD equation for patients that are not between the ages of 18 and 70, are , have extremes of body size, muscle mass, or nutritional status, or are non- or non-. According to the National Kidney Foundation, irrespective of diagnosis, the stage of the disease is based on the level of kidney function: Stage Description GFR(mL/min/1.73 m(2)) 1 Kidney damage with normal or decreased GFR 90 2 Kidney damage with mild decrease in GFR 60-89 3 Moderate decrease in GFR 30-59 4 Severe decrease in GFR 15-29 5 Kidney failure <15 (or dialysis) 4 ADDITIONAL INFORMATION The testing method is a chemiluminometric immunoassay manufactured by [employer] and performed on the [email or web address]. Values obtained with different assay methods or kits may be different and cannot be used interchangeably. Test results cannot be interpreted as absolute evidence for the presence or absence of malignant disease. Test Performed by: [address] [id number] 5 REFERENCE VALUE <=1.0 (Negative) Test Performed by: [facility] [address] [place] [address] 6 Platelet count confirmed by estimate 7 Platelets Giant Platelet count confirmed by estimate 8 Normal Range 180 to 914 Indeterminate Range 145 to 180 Deficient Range <145 9 ADDITIONAL INFORMATION This test was developed and its performance characteristics determined by [facility] in a manner consistent with CLIA requirements. This test has not been cleared or approved by the U.S. Food and Drug Administration. Test Performed by: [facility] [address] [place] [address] 10 ADDITIONAL INFORMATION The testing method is a chemiluminometric immunoassay manufactured by [employer] and performed on the [employer]'s [employer]. Values obtained with different assay methods or kits may be different and cannot be used interchangeably. Test results cannot be interpreted as absolute evidence for the presence or absence of malignant disease. Test Performed by: [facility] - [address] [address] 11 Platelet count confirmed by estimate 12 Because ethnic data is not always readily available, this report includes an eGFR for both -Americans and non- Americans. The National Kidney Disease Education Program (NKDEP) does not endorse the use of the MDRD equation for patients that are not between the ages of 18 and 70, are , have extremes of body size, muscle mass, or nutritional status, or are non- or non-. According to the National Kidney Foundation, irrespective of diagnosis, the stage of the disease is based on the level of kidney function: Stage Description GFR(mL/min/1.73 m(2)) 1 Kidney damage with normal or decreased GFR 90 2 Kidney damage with mild decrease in GFR 60-89 3 Moderate decrease in GFR 30-59 4 Severe decrease in GFR 15-29 5 Kidney failure <15 (or dialysis) 13 Platelets Large Platelet count confirmed by estimate 14 Because ethnic data is not always readily available, this report includes an eGFR for both -Americans and non- Americans. The National Kidney Disease Education Program (NKDEP) does not endorse the use of the MDRD equation for patients that are not between the ages of 18 and 70, are , have extremes of body size, muscle mass, or nutritional status, or are non- or non-. According to the National Kidney Foundation, irrespective of diagnosis, the stage of the disease is based on the level of kidney function: Stage Description GFR(mL/min/1.73 m(2)) 1 Kidney damage with normal or decreased GFR 90 2 Kidney damage with mild decrease in GFR 60-89 3 Moderate decrease in GFR 30-59 4 Severe decrease in GFR 15-29 5 Kidney failure <15 (or dialysis) 15 Consistent with Previous Results Reported on 09/15/18 16 Consistent with Previous Results Reported on 09/15/18 17 ADDITIONAL INFORMATION The testing method is a chemiluminometric immunoassay manufactured by [employer] and performed on the [employer]'s [employer]. Values obtained with different assay methods or kits may be different and cannot be used interchangeably. Test results cannot be interpreted as absolute evidence for the presence or absence of malignant disease. Test Performed by: [address] [address] 18 Because ethnic data is not always readily available, this report includes an eGFR for both -Americans and non- Americans. The National Kidney Disease Education Program (NKDEP) does not endorse the use of the MDRD equation for patients that are not between the ages of 18 and 70, are , have extremes of body size, muscle mass, or nutritional status, or are non- or non-. According to the National Kidney Foundation, irrespective of diagnosis, the stage of the disease is based on the level of kidney function: Stage Description GFR(mL/min/1.73 m(2)) 1 Kidney damage with normal or decreased GFR 90 2 Kidney damage with mild decrease in GFR 60-89 3 Moderate decrease in GFR 30-59 4 Severe decrease in GFR 15-29 5 Kidney failure <15 (or dialysis) 19 Macrocytic anemia. Absolute neutropenia. Reviewed by Katia Golden MD 20 ADDITIONAL INFORMATION The testing method is a chemiluminometric immunoassay manufactured by [employer] and performed on the [email or web address]. Values obtained with different assay methods or kits may be different and cannot be used interchangeably. Test results cannot be interpreted as absolute evidence for the presence or absence of malignant disease. Test Performed by: [address] [id number] 21 Platelet count confirmed by estimate Procedures Date Code Description Status 09/17/2013 41644111 Mammogram Completed 09/27/2004 [id number] Colonoscopy Completed Medical Devices Description No Information Available Encounters Description No Information Available Assessments Date Code Description Provider 02/09/2019 F33.8 Other recurrent depressive disorders Rosi Resendez 02/09/2019 R53.83 Other fatigue Latoya Resendez Plan of Treatment Future Appointment(s):03/16/2019 11:00 am - Latoya Resendez at [id number]/09/2019 - Elba ResendezCF33.8 Other recurrent depressive [id number] Other fatigueAllNew Medication:Bupropion Hydrochloride ER (SR) 100 mg - 1 po qdComments:Medication Management Patient Understands medications she's taking? Yes No Are there Barriers to Adherence? Yes No Has the patient been asked about herbal supplements and therapies, and OTC meds? Yes No Care Plan1. Patient has been queried about patient's goals/ preferences and functional/lifestyle goals at relevant visits. If relevant, describe: na2. Treatment goals as explained to the patient: abovefurther eval and treatment of sx 3. Are there barriers to meeting treatment goals? Yes No If Yes, please describe:4. Self-Management goals as described to thepatient: Yes No I willcheck some labs as your sugar has been elevated in past , also your thyroid function we can try bupropion qd and follow pending labs and by phone or ov in 4 -6 weeks Functional Status Description No Information Available Mental Status Description No Information Available Referrals Description No Information Available
--- OUTSIDE RECORDS SUMMARY | 2019-02-22 17:59 | XMS REPORT | Continuity of Care Document ---
:1945 External Reference #:[id number] Author Name Latoya Resendez Address [address] [place] [address] Care Team Providers Name Role Phone Shaun Cummings - Surgery Care Team Information Sheet Metal Pattern Cutter [phone] Harrison Duarte MD - Orthopaedic Care Team Information Sheet Metal Pattern Cutter Surgery [facility] Radiology Department - Diagnostic Care Team Information Sheet Metal Pattern Cutter [phone] Radiology Cornel Joseph - Thoracic Surgery Care Team Information Sheet Metal Pattern Cutter (Cardiothoracic Vascular Surgery) Les Richardson - Ophthalmology Care Team Information Sheet Metal Pattern Cutter [phone] Problems Active Problems Provider Date Hyperlipidemia Gustavo [...] CPT Code Status Date Vaccine Lot # 71365 Given 09/24/2013 Pneumococcal Immunization [id number] Given 09/24/2013 Tdap Tetanus, W Pertussis [id number] Given 08/31/2004 Td Immunization, For Use In Individuals 7 Years Or Older 18555 Given 04/28/2002 DO Not Use Split Influenza [...] Date Facility Test Result H/L Range Note CBC Auto Diff 01/12/2019 [facility] White Blood Count 2.0 10^3/uL Low 3.5-10.8 Red Blood Count 2.39 10^6/uL Low 3.70-4.87 Hemoglobin 9.2 g/dL Low 12.0-16.0 Hematocrit 27 % Low 35-47 Mean Corpuscular Volume 114 fL High 80-97 Mean Corpuscular Hemoglobin 39 pg High 27-31 Mean Corpuscular HGB Conc 34 g/dL Normal 31-36 Red Cell Distribution Width 19 % High 10-15 Abs Neutrophils 1.2 10^3/uL Low 1.5-7.7 Platelet Count 396 10^3/uL Normal 150-450 1 Abs Lymphocytes 0.6 10^3/uL Low 1.0-4.8 Abs Monocytes 0.2 10^3/uL Normal 0-0.8 Abs Eosinophils 0.0 10^3/uL Normal 0-0.6 Abs Basophils 0.0 10^3/uL Normal 0-0.2 Abs Nucleated RBC 0.0 10^3/uL Granulocyte % 58.2 % Lymphocyte % 27.7 % Monocyte % 10.4 % Eosinophil % 1.6 % Basophil % 2.1 % Nucleated Red Blood Cells % 0.1 Large Platelets Present Cell Morphology 01/12/2019 [facility] Macrocytosis 2+ Anisocytosis 2+ Comp Metabolic Panel 01/12/2019 [facility] Sodium 142 mmol/L Normal 135-145 Potassium 3.7 [...] Egfr Non- 60.4 >60 Egfr 73.1 >60 2 Laboratory test finding 01/12/2019 [facility] Breast Carcinoma 36.0 U/mL <= 38.0 3 Ag(Ca27.29) Anti Nuclear Antibody 0.2 U 4 CBC Auto Diff 12/08/2018 [facility] White Blood Count 2.3 10^3/uL Low 3.5-10.8 Red Blood Count 3.07 10^6/uL Low 3.70-4.87 Hemoglobin 11.1 g/dL Low 12.0-16.0 Hematocrit 34 % Low 35-47 Mean Corpuscular Volume 111 fL High 80-97 Mean Corpuscular Hemoglobin 36 pg High 27-31 Mean Corpuscular HGB Conc 33 g/dL Normal 31-36 Red Cell Distribution Width 17 % High 10-15 Platelet Count 362 10^3/uL Normal 150-450 5 Mean Platelet Volume 11.8 fL High 7.4-10.4 Manual Differential 12/08/2018 [facility] Platelet Morphology Giant Neutrophil % 54.0 % Lymphocytes % 40.0 % Monocytes % 5.0 % Eosinophils % 1.0 % Macrocytosis 2+ Abs Neutrophils 1.2 10^3/uL Low 1.5-7.7 Abs Lymphocytes 0.9 10^3/uL Low 1.0-4.8 Abs Monocytes 0.1 10^3/uL Normal 0-0.8 Abs Eosinophils 0.0 10^3/uL Normal 0-0.6 CBC Auto Diff 12/01/2018 [facility] White Blood Count 2.0 10^3/uL Low 3.5-10.8 [...] 0.1 Platelet Count 250 10^3/uL Normal 150-450 6 Mean Platelet Volume 10.3 fL Normal 7.4-10.4 Laboratory test finding 12/01/2018 [facility] Vitamin B12 151 pg/mL Low 180-914 7 Methylmalonic Acid Mma 0.16 nmol/mL <=0.40 8 Comp Metabolic Panel 11/24/2018 [facility] Sodium 141 mmol/L Normal 135-145 Potassium 3.6 [...] Egfr Non- 62.8 >60 Egfr 76.0 >60 9 CBC Auto Diff 11/24/2018 [facility] White Blood Count 1.0 10^3/uL Low 3.5-10.8 [...] Present Platelet Count 80 10^3/uL Low 150-450 10 Mean Platelet Volume 11.9 fL High 7.4-10.4 Laboratory test finding 11/24/2018 [facility] Breast Carcinoma 28.2 U/mL <= 38.0 11 Ag(Ca27.29) Manual Differential 10/27/2018 [facility] Platelet Morphology Giant Neutrophil % 48.0 % Lymphocytes % 45.0 % Monocytes % 4.0 % Eosinophils % 2.0 % Basophil % 1.0 % Macrocytosis 1+ Polychromasia 1+ Abs Neutrophils 1.1 10^3/uL Low 1.5-7.7 Abs Lymphocytes 1.0 10^3/uL Normal 1.0-4.8 Abs Monocytes 0.1 10^3/uL Normal 0-0.8 Abs Eosinophils 0.1 10^3/uL Normal 0-0.6 Abs Basophils 0.0 10^3/uL Normal 0-0.2 CBC Auto Diff 10/27/2018 [facility] White Blood Count 2.3 10^3/uL Low 3.5-10.8 Red Blood Count 3.27 10^6/uL Low 3.70-4.87 Hemoglobin 11.7 g/dL Low 12.0-16.0 Hematocrit 35 % Normal 35-47 Mean Corpuscular Volume 107 fL High 80-97 Mean Corpuscular Hemoglobin 36 pg High 27-31 Mean Corpuscular HGB Conc 33 g/dL Normal 31-36 Red Cell Distribution Width 17 % High 10.5-15 Platelet Count 220 10^3/uL Normal 150-450 12 Mean Platelet Volume 11.0 fL High 7.4-10.4 Comp Metabolic Panel 10/20/2018 [facility] Sodium 142 mmol/L Normal 135-145 Potassium 3.5 [...] Egfr Non- 61.2 >60 Egfr 74.1 >60 13 CBC Auto Diff 10/20/2018 [facility] White Blood Count 1.4 10^3/uL Low 3.5-10.8 Red Blood Count 3.07 10^6/uL Low 3.70-4.87 Hemoglobin 11.3 g/dL Low 12.0-16.0 Hematocrit 33 % Low 35-47 Mean Corpuscular Volume 107 fL High 80-97 Mean Corpuscular Hemoglobin 37 pg High 27-31 Mean Corpuscular HGB Conc 34 g/dL Normal 31-36 Red Cell Distribution Width 17 % High 10.5-15 Platelet Count 81 10^3/uL Low 150-450 14 Mean Platelet Volume 11.4 fL High 7.4-10.4 Abs Neutrophils 0.5 10^3/uL Low 1.5-7.7 15 Abs Lymphocytes 0.7 10^3/uL Low 1.0-4.8 Abs Monocytes 0.2 10^3/uL Normal 0-0.8 Abs Eosinophils 0.0 10^3/uL Normal 0-0.6 Abs Basophils 0.0 10^3/uL Normal 0-0.2 Abs Nucleated RBC 0.0 10^3/uL Granulocyte % 34.8 % Lymphocyte % 49.4 % Monocyte % 12.7 % Eosinophil % 2.4 % Basophil % 0.7 % Nucleated Red Blood Cells % 0.2 Laboratory test 10/20/2018 [facility] Breast Carcinoma 24.8 U/mL <=38.0 16 finding Ag(Ca27.29) CBC Auto Diff 09/22/2018 [facility] White Blood Count 2.3 10^3/uL Low 3.5-10.8 [...] 9.9 fL Normal 7.4-10.4 Manual Differential 09/22/2018 [facility] Platelet Morphology Large Neutrophil % 53 % Lymphocytes % 30 % Monocytes % 14 % Eosinophils % 3 % Abs Neutrophils 1.2 10^3/uL Low 1.5-7.7 Abs Lymphocytes 0.7 10^3/uL Low 1.0-4.8 Abs Monocytes 0.3 10^3/uL Normal 0-0.8 Abs Eosinophils 0.1 10^3/uL Normal 0-0.6 Macrocytosis 1+ Anisocytosis 1+ Comp Metabolic Panel 09/15/2018 [facility] Sodium 141 mmol/L Normal 135-145 Potassium 3.5 [...] Egfr Non- 63.6 >60 Egfr 77.0 >60 17 CBC Auto Diff 09/15/2018 [facility] White Blood Count 1.5 10^3/uL Low 3.5-10.8 [...] Cells % 0.1 Laboratory test finding 09/15/2018 [facility] Pathologist Review (SEE NOTE) 18 Breast Carcinoma Ag(Ca27.29) 25.7 U/mL <=38.0 19 CBC Auto Diff 08/18/2018 [facility] White Blood Count 2.8 10^3/uL Low 3.5-10.8 [...] 1.5-7.7 Platelet Count 276 10^3/uL Normal 150-450 20 Mean Platelet Volume 11.4 fL High 7.4-10.4 Abs Lymphocytes 1.0 10^3/uL Normal 1.0-4.8 Abs Monocytes 0.4 10^3/uL Normal 0-0.8 Abs Eosinophils 0.1 10^3/uL Normal 0-0.6 Abs Basophils 0.1 10^3/uL Normal 0-0.2 Granulocyte % 43.1 % Lymphocyte % 36.6 % Monocyte % 13.1 % Eosinophil % 3.8 % Basophil % 3.4 % 1 Platelet count confirmed by estimate 2 Because ethnic data is not always readily [...] 15-29 5 Kidney failure <15 (or dialysis) 3 ADDITIONAL INFORMATION The testing method is a chemiluminometric immunoassay manufactured by [employer] and performed on the [employer]'s Karisma [employer]. Values obtained with different assay methods or kits may be different and cannot be used interchangeably. Test results cannot be interpreted as absolute evidence for the presence or absence of malignant disease. Test Performed by: [facility] [address] [place] [address] 4 REFERENCE VALUE <=1.0 (Negative) Test Performed by: [facility] [address] [place] [address] 5 Platelet count confirmed by estimate 6 Platelets Giant Platelet count confirmed by estimate 7 Normal Range 180 to 914 Indeterminate Range 145 to 180 Deficient Range <145 8 ADDITIONAL INFORMATION This test was developed and its performance characteristics determined by [facility] in a manner consistent with CLIA requirements. This test has not been cleared or approved by the U.S. Food and Drug Administration. Test Performed by: [address] [address] 9 Because ethnic data is not always readily [...] 15-29 5 Kidney failure <15 (or dialysis) 10 Platelet count confirmed by estimate 11 ADDITIONAL INFORMATION The testing method is a chemiluminometric immunoassay manufactured by [employer] and performed on the [employer]'s [employer]. Values obtained with different assay methods or kits may be different and cannot be used interchangeably. Test results cannot be interpreted as absolute evidence for the presence or absence of malignant disease. Test Performed by: [address] [id number] 12 Platelets Large Platelet count confirmed by estimate 13 Because ethnic data is not always readily [...] 15-29 5 Kidney failure <15 (or dialysis) 14 Consistent with Previous Results Reported on 09/15/18 15 Consistent with Previous Results Reported on 09/15/18 16 ADDITIONAL INFORMATION The testing method is a chemiluminometric immunoassay manufactured by [employer] and performed on the [employer] Cent[employer]. Values obtained with different assay methods or kits may be different and cannot be used interchangeably. Test results cannot be interpreted as absolute evidence for the presence or absence of malignant disease. Test Performed by: [address] [address] 17 Because ethnic data is not always readily [...] 15-29 5 Kidney failure <15 (or dialysis) 18 Macrocytic anemia. Absolute neutropenia. Reviewed by Katia Golden MD 19 ADDITIONAL INFORMATION The testing method is a chemiluminometric immunoassay manufactured by [employer] and performed on the [employer]. Values obtained with different assay methods or kits may be different and cannot be used interchangeably. Test results cannot be interpreted as absolute evidence for the presence or absence of malignant disease. Test Performed by: [address] [id number] 20 Platelet count confirmed by estimate Procedures Date Code Description Status 09/17/2013 [id number] Mammogram Completed 09/27/2004 [id number] Colonoscopy Completed Medical Devices Description No Information Available Encounters Description No Information Available Assessments Date Code Description Provider 02/09/2019 F33.8 Other recurrent depressive disorders Rosi Resendez 02/09/2019 R53.83 Other fatigue Latoya Resendez Plan of Treatment Future Appointment(s):03/16/2019 11:00 am - Latoya Resendez at [facility]/09/2019 - Rosi Resendez-CF33.8 Other recurrent depressive [id number] Other fatigueAllNew Medication:Bupropion Hydrochloride ER (SR) 100 [...] as described to thepatient: Yes No I zachery check some labs as your sugar has been elevated in bpst , also your thyroid function we can try bupropion qd and follow pending labs and by phone or ov in 4 -6 weeks Functional Status Description No Information Available Mental Status Description No Information Available Referrals Description No Information Available
[2019-02-22] MEDS ORDERED: Morphine 4 MG/ML VIAL (1 ml) 4 MG/ML VIAL IV ONE (18:01)
[2019-02-22] MEDS ORDERED: Ondansetron INJ* 2 MG/ML VIAL IV ONE (18:01)
--- NOTE | 2019-02-22 18:08 | ED ---
Lower Extremity - HPI Summary HPI Summary: This patient is a 73 year old female presenting to [facility] with a chief complaint of right hip injury. The patient states she was getting into a car when she felt a pop in her right hip. She has hx. of total hip approx 7 years ago, with 4 spontaneous dislocations in the past 2 years. She reports this feels the same as the previous dislocations. Pt denies any fever, chills, erythema of eyes, sore throat, CP, SOB, cough, abdominal pain, N/V, dysuria, hematuria, myalgia, edema, rash, or dizziness. - History of Current Complaint Chief Complaint: EDHipPelvisInjury Stated Complaint: RT HIP PAIN PER EMS Time Seen by Provider: 02/22/19 18:01 Hx Obtained From: Patient Onset of Pain: Prior to Arrival Pain Intensity: 10 Pain Scale Used: 0-10 Numeric Timing: Constant - Allergies/Home Medications Allergies/Adverse Reactions: Allergies Allergy/AdvReac Type Severity Reaction Status Date / Time Adhesive Tape AdvReac Intermediate Rash And Verified 02/04/17 09:12 [Tegaderm Dressing] Itching tegaderm Allergy Rash And Uncoded 02/04/17 09:12 Itching Home Medications: Home Medications Pramipexole Di-HCl [Pramipexole Dihydrochlori] 0.125 mg PO BEDTIME 02/22/19 [ History Confirmed 02/22/19] buPROPion HCl [Bupropion HCl Sr] 100 mg PO DAILY 02/22/19 [History Confirmed 03/04] PMH/Surg Hx/FS Hx/Imm Hx Endocrine/Hematology History: Denies: Hx Diabetes, Hx Systemic Lupus Erythematosus Cardiovascular History: Denies: Hx Congestive Heart Failure, Hx Hypertension, Hx Pacemaker/ICD Comment Only: Other Cardiovascular Problems/Disorders - PORT 09/2013 Respiratory History: Reports: Hx Pleural Effusion, Other Respiratory Problems/ Disorders - SOB ON EXCERTION, HAS BEEN ON CHEMO Denies: Hx Asthma GI History: Reports: Hx Gastroesophageal Reflux Disease, Hx Hiatal Hernia History: Denies: Hx Dialysis, Hx Renal Disease Musculoskeletal History: Reports: Other Musculoskeletal History - right hip replacement Denies: Hx Rheumatoid Arthritis Sensory History: Denies: Hx Hearing Aid Psychiatric History: Reports: Hx Depression Denies: Hx Panic Disorder - Cancer History Cancer Type, Location and Year: Left breast CA, with mets Hx Chemotherapy: Yes Hx Radiation Therapy: No - Surgical History Surgery Procedure, Year, and Place: R hip replacement 2009 [facility],Hiatal hernia repair and Salvador fundoplication (GERD) 2008,R inguinal exploratory surgery,[facility], POWER PORT RIGHT CHEST WALL; Infectious Disease History: No Infectious Disease History: Denies: Traveled Outside the [place] in Last 30 Days - Family History Known Family History: Positive: Other - CVA, lymphoma - Social History Alcohol Use: None Alcohol Amount: 1-2 x per year Substance Use Type: Reports: None Hx Tobacco Use: No Smoking Status (MU): Never Smoked Tobacco Review of Systems Negative: Fever, Chills Negative: Erythema Negative: Sore Throat Negative: Chest Pain Negative: Shortness Of Breath, Cough Negative: Abdominal Pain, Vomiting, Nausea Negative: dysuria, hematuria Positive: Other - Right hip pain Negative: Rash Neurological: Other - Neg: Dizziness All Other Systems Reviewed And Are Negative: No Physical Exam - Summary Physical Exam Summary: Constitutional: Well-developed, Well-nourished, Alert, Cooperative Skin: Warm, Dry HENT: Normocephalic; No Racoons eyes; No rosales's sign; No abrasion; No contusion; No hemotympanum; No maxilla facial tenderness or instability; Dentition are smooth; No dental trauma; No trismus Eyes: EOM normal, PERRL Neck: Trachea is midline. No stridor; No JVD; No step off; No posterior cervical spine tenderness Cardio: Rhythm regular, rate normal Heart sounds normal; Intact distal pulses; The pedal pulses are 2+ and symmetric. Radial pulses are 2+ and symmetric. Pulmonary/Chest wall: Effort normal; Breath sounds normal; Equal chest rise; No flail segment; No rib tenderness; No sternal tenderness Abd: Soft, Appearance normal. No distension; No tenderness; No palpable pulsatile mass; No Cullens sign; No Maldonado-Turners sign Musculoskeletal: Full ROM and no tenderness ankles, shoulders, elbows and knees ; No joint swelling; No vertebral body tenderness; No paraspinal tenderness; No step off or deformity of the spine; Pelvis is stable to lateral compression and rock. Shortened externally rotated right hip. Neuro: Alert, Oriented x3, Strength 5/5 all extremities. : No blood at urethral meatus Psych: Mood and affect Normal Triage Information Reviewed: Yes Vital Signs On Initial Exam: Initial Vitals Temp Pulse Resp BP Pulse Ox 97 F 70 16 122/61 97 02/22/19 17:49 02/22/19 17:49 02/22/19 17:49 02/22/19 17:49 02/22/19 17:49 Vital Signs Reviewed: Yes Procedures - Joint Reduction Right Joint Reduction Site: hip (R) Conscious Sedation: No Post Joint Reduction Film: joint reduced Diagnostics - Vital Signs Vital Signs Temp Pulse Resp BP Pulse Ox 02/22/19 17:49 97 F 70 16 122/61 97 - Laboratory Result Diagrams: 02/22/19 18:41 02/22/19 18:37 Lab Statement: Any lab studies that have been ordered have been reviewed, and results considered in the medical decision making process. Re-Evaluation - Re-Evaluation First Eval Re-Evaluation Time: 20:08 Change: Improved Comment: Patient is still in progress of waking up following procedural sedation but is beginning to be more arousable. Second Eval Re-Evaluation Time: 20:55 Change: Improved Comment: I have discussed results with the patient, and she has significant improvement following the procedural sedation performed by Dr. Santa prior to shift change. Discussed symptoms that warrant immediate return to ED. Lower Extremity Course/Dx - Course Course Of Treatment: This patient is a 73 year old female presenting to [facility] with a chief complaint of right hip injury. Physical exam was remarkable for hip dislocation. A joint reduction procedure was performed on the hip. PROCEDURE NOTE. PROCEDURE NAME: PROCEDURAL SEDATION. INDICAITON: R HIP DISLOCATION. PROCEDURALIST: WILLIAM CHAMBERS. SEDATION PROVIDER: FLO SANTA MD. DETAILS: Informed consent including the risks and benefits of the procedure , including apnea and hypotension were accepted by the patient. Emergency airway equipment was immediately available at the bedside. Respiratory therapy was present. The sedation. End-tidal capnography was utilized. A total of 110 mg of IV propofol was utilized in 3 aliquots. Patient began moving the extremity spontaneously after the first sedation, believed that she actually self reduced. This was disproven when she awoke and was still in pain, she was sedated again, and a successful reduction was undertaken. The course of sedation was otherwise uneventful. She had no hypoxia or apnea. This patient will be signed out to Dr. Rodriguez pending sobriety at shift change 1900. - Diagnoses Provider Diagnoses: Recurrent dislocation, right hip Discharge ED - Sign-Out/Discharge Documenting (check all that apply): Patient Departure Signing out patient TO: Lili Rodriguez - At shift change 1900 pending sobriety. Patient Received Moderate/Deep Sedation with Procedure: Yes - Discharge Plan Condition: Stable Disposition: HOME Patient Education Materials: Moderate Sedation (ED), Hip Dislocation (ED) Referrals: Gustavo Lincoln MD [Primary Care Provider] - 3 Days Additional Instructions: Please follow up with your primary care physician within three days. Please return to ED for any new or worsening symptoms. - Billing Disposition and Condition Condition: STABLE Disposition: Home - Attestation Statements Document Initiated by Tk: Yes Documenting Scribe: Ernst Girard Provider For Whom Tk is Documenting (Include Credential): Flo Santa MD Scribe Attestation: Ernst Pelayo, scribed for Flo Santa MD on 03/05/19 at 1150. Scribe Documentation Reviewed: Yes Provider Attestation: The documentation as recorded by the Ernst del rio accurately reflects the service I personally performed and the decisions made by Flo mack MD Status of Scribe Document: Viewed
[2019-02-22] MEDS ORDERED: Propofol* 10 MG/ML 20 ML BTL IV PUSH ONE (18:32)
[2019-02-22] MEDS ORDERED: Propofol* 500 MG/50 ML BTL ONE (18:36)
[2019-02-22 18:51] LABS: Hematocrit 27 % (35-47); Hemoglobin 8.9 g/dL (12.0-16.0); Mean Corpuscular HGB Conc 33 g/dL (31-36); Mean Corpuscular Hemoglobin 36 pg (27-31); Mean Corpuscular Volume 111 fL (80-97); Mean Platelet Volume 11.6 fL (7.4-10.4); Platelet Count 542 10^3/uL (150-450); Red Blood Count 2.45 10^6 /uL (3.70-4.87); Red Cell Distribution Width 23 % (10-15); White Blood Count 3.5 10^3/uL (3.5-10.8)
[2019-02-22 19:07] LABS: Albumin 3.8 g/dL (3.2-5.2); BUN/Creatinine Ratio 18.5 (8-20); Calcium 8.7 mg/dL (8.6-10.3); EGFR African American 72.2 (>60); EGFR Non-African American 59.7 (>60); Globulin 1.9 g/dL (2-4); Potassium 4.1 mmol/L (3.5-5.0); Total Bilirubin 1.3 mg/dL (0.2-1.0); Total Protein 5.7 g/dL (6.4-8.9)
--- NOTE | 2019-02-22 19:20 | ED ---
Progress - Progress Note Progress Note: The patient is a sign-out from Dr. Flo Santa MD, to Dr. Lili Rodriguez MD, at change of shift at 1900 on 02/22/2019, pending improvement of procedural sedation and disposition. Upon re-eval at 2007, the patient is still asleep from the sedation. At 2054, the patient has improved from the sedation. She will be discharged home with sedation instructions and follow up with her PCP in 2-3 days. Re-Evaluation - Re-Evaluation First Eval Re-Evaluation Time: 20:08 Change: Improved Comment: Patient is still in progress of waking up following procedural sedation but is beginning to be more arousable. Second Eval Re-Evaluation Time: 20:55 Change: Improved Comment: I have discussed results with the patient, and she has significant improvement following the procedural sedation performed by Dr. Santa prior to shift change. Discussed symptoms that warrant immediate return to ED. Course/Dx - Course Course Of Treatment: The patient is a sign-out from Dr. Flo Santa MD, to Dr. Lili Rodrigeuz MD, at change of shift at 1900 on 02/22/2019, pending improvement of procedural sedation and disposition. She has improved from the sedation at 2054 and is safe for discharge home. She is provided sedation instructions with discharge. - Diagnoses Provider Diagnoses: Recurrent dislocation, right hip Discharge ED - Sign-Out/Discharge Documenting (check all that apply): Patient Departure - Patient will be discharged home., Receiving Sign-Out Receiving patient FROM: Flo Snata - Patient is a sign-out from Dr. Flo Santa MD, at 1900 on 02/22/2019, pending improvement of procedural sedation and disposition. Patient Received Moderate/Deep Sedation with Procedure: Yes - Discharge Plan Condition: Stable Disposition: HOME Patient Education Materials: Moderate Sedation (ED), Hip Dislocation (ED) Referrals: Gustavo Lincoln MD [Primary Care Provider] - 3 Days Additional Instructions: Please follow up with your primary care physician within three days. Please return to ED for any new or worsening symptoms. - Billing Disposition and Condition Condition: STABLE Disposition: Home - Attestation Statements Document Initiated by Scribe: Yes Documenting Scribe: Corie Ruiz Provider For Whom Scribe is Documenting (Include Credential): Dr. Lili Rodriguez MD Scribe Attestation: I, Corie Ruiz, scribed for Dr. Lili Rodriguez MD on 02/22/19 at 2242. Scribe Documentation Reviewed: Yes Provider Attestation: The documentation as recorded by the scribe, Corie Ruiz accurately reflects the service I personally performed and the decisions made by me, Dr. Lili Rodriugez MD Status of Scribe Document: Viewed
[2019-02-22 21:26] VITALS: BP 124/76
== END 2019-02-22 21:24 | disposition home or self-care (01) ==
LOC: ED 17:41
DX: M24.451 Recurrent dislocation, right hip (principal); Z79.899 Other long term (current) drug therapy; K21.9 Gastro-esophageal reflux disease without esophagitis
CPT/HCPCS: 36415; 80053; 85027; 96374; 96375; 99284; J2270; J2405; J2704

== ENCOUNTER 2019-03-28 18:51 | Inpatient (IN) | payer MEDICARE, OTHER ==
--- OUTSIDE RECORDS SUMMARY | 2019-03-28 19:11 | XMS REPORT | Continuity of Care Document ---
:1945 External Reference #:[id number] Author Name Latoya Resendez Address [address] [place] [address] Care Team Providers Name Role Phone Shaun Cummings - Surgery Care Team Information Management And Budget Analyst [phone] Harrison Duarte MD - Orthopaedic Care Team Information Management And Budget Analyst [phone] Surgery [facility] Radiology Department - Diagnostic Care Team Information Management And Budget Analyst Radiology Cornel Joseph - Thoracic Surgery Care Team Information Management And Budget Analyst (Cardiothoracic Vascular Surgery) Les Richardson - Ophthalmology Care Team Information Management And Budget Analyst Problems Active Problems Provider Date Hyperlipidemia Gustavo [...] Patient has never smoked Smoking Status Reviewed: 03/16/19 Patient has never smoked Allergies, Adverse Reactions, Alerts Description No Known Drug Allergies Medications Active Medications SIG Qnty Indications Ordering Date Provider Bupropion Hydrochloride 1 by mouth 90tabs Marlee 02/09/2019 ER (SR) every day [place], Afnp-C 100mg Tablets ER 12HR Lexapro take 1 tablet 90tabs Gustavo Lincoln, 09/09/2002 20mg Tablets by mouth one M.D. time daily Compazine daily Unknown 5mg Tablets Letrozole 1 po qd Unknown 2.5mg Tablets Ibrance 21 day Unknown 75mg Capsules period-every other day Prochlorperazine Maleate take two Unknown 10mg tablets at Tablets bedtime Immunizations CPT Code Status Date Vaccine Lot # [id number] Given 02/18/2019 Zoster (Shingles) Vaccine (HZV), Recombinant, Subunit, Adjuvanted 20457 Given 09/24/2013 Pneumococcal Immunization [id number] Given 09/24/2013 Tdap Tetanus, W Pertussis [id number] Given 08/31/2004 Td Immunization, For Use In Individuals 7 Years Or Older 32840 Given 04/28/2002 DO Not Use Split Influenza Virus Vaccine Vital Signs Date Vital Result Comment 03/16/2019 11:11am BP Systolic 110 mmHg BP Diastolic 70 mmHg Heart Rate 84 /min Body Temperature 98.7 F Respiratory Rate 16 /min Height 64.75 inches 5'4.75" Weight 200.00 lb BMI (Body Mass Index) 33.5 kg/m2 02/09/2019 3:40pm BP Systolic 100 mmHg BP Diastolic 60 mmHg Heart Rate 84 /min Body Temperature 98.6 F Respiratory Rate 16 /min Height 64.75 inches 5'4.75" Weight 202.00 lb BMI (Body Mass Index) 33.9 kg/m2 Results Test Date Facility Test Result H/L Range Note CBC Auto Diff 02/23/2019 [facility] White Blood Count 2.8 10^3/uL Low 3.5-10.8 Red Blood Count 2.42 10^6/uL Low 3.70-4.87 Hemoglobin 8.6 g/dL Low 12.0-16.0 Hematocrit 27 % Low 35-47 Mean Corpuscular Volume 110 fL High 80-97 Mean Corpuscular Hemoglobin 36 pg High 27-31 Mean Corpuscular HGB Conc 32 g/dL Normal 31-36 Red Cell Distribution Width 22 % High 10-15 Abs Neutrophils 1.2 10^3/uL Low 1.5-7.7 Platelet Count 518 10^3/uL High 150-450 1 Mean Platelet Volume 11.8 fL High 7.4-10.4 Giant Platelets Present Large Platelets Present Abs Lymphocytes 1.1 10^3/uL Normal 1.0-4.8 Abs Monocytes 0.4 10^3/uL Normal 0-0.8 Abs Eosinophils 0.0 10^3/uL Normal 0-0.6 Abs Basophils 0.0 10^3/uL Normal 0-0.2 Abs Nucleated RBC 0.0 10^3/uL Granulocyte % 44.7 % Lymphocyte % 38.8 % Monocyte % 14.8 % Eosinophil % 1.0 % Basophil % 0.7 % Nucleated Red Blood Cells % 0.3 Comp Metabolic Panel 02/22/2019 [facility] Sodium 138 mmol/L Normal 135-145 Potassium 4.1 mmol/L Normal 3.5-5.0 Chloride 107 mmol/L Normal 101-111 Co2 Carbon Dioxide 27 mmol/L Normal 22-32 Anion Gap 4 mmol/L Normal 2-11 Glucose 110 mg/dL High 70-100 Blood Urea Nitrogen 17 mg/dL Normal 6-24 Creatinine 0.92 mg/dL Normal 0.51-0.95 BUN/Creatinine Ratio 18.5 Normal 8-20 Calcium 8.7 mg/dL Normal 8.6-10.3 Total Protein 5.7 g/dL Low 6.4-8.9 Albumin 3.8 g/dL Normal 3.2-5.2 Globulin 1.9 g/dL Low 2-4 Albumin/Globulin Ratio 2.0 Normal 1-3 Total Bilirubin 1.30 mg/dL High 0.2-1.0 Alkaline Phosphatase 73 U/L Normal 34-104 Alt 7 U/L Normal 7-52 Ast 19 U/L Normal 13-39 Egfr Non- 59.7 >60 Egfr 72.2 >60 2 CBC No Diff 02/22/2019 [facility] White Blood Count 3.5 10^3/uL Normal 3.5-10.8 Red Blood Count 2.45 10^6/uL Low 3.70-4.87 Hemoglobin 8.9 g/dL Low 12.0-16.0 Hematocrit 27 % Low 35-47 Mean Corpuscular Volume 111 fL High 80-97 3 Mean Corpuscular Hemoglobin 36 pg High 27-31 Mean Corpuscular HGB Conc 33 g/dL Normal 31-36 Red Cell Distribution Width 23 % High 10-15 Platelet Count 542 10^3/uL High 150-450 Mean Platelet Volume 11.6 fL High 7.4-10.4 Laboratory test 02/16/2019 [facility] Vitamin B12 387 pg/mL Normal 180-914 4 finding CBC Auto Diff 02/16/2019 [facility] Red Blood Count 2.06 10^6/uL Low 3.70-4.87 Hemoglobin 7.8 g/dL Low 12.0-16.0 Hematocrit 24 % Low 35-47 Mean Corpuscular Volume 118 fL High 80-97 5 Mean Corpuscular Hemoglobin 38 pg High 27-31 Mean Corpuscular HGB Conc 32 g/dL Normal 31-36 Red Cell Distribution Width 20 % High 10-15 Abs Neutrophils 0.8 10^3/uL Low 1.5-7.7 Granulocyte % 48.8 % Lymphocyte % 36.7 % Monocyte % 11.8 % Eosinophil % 1.1 % Basophil % 1.6 % Nucleated Red Blood Cells % 0.2 White Blood Count 1.6 10^3/uL Low 3.5-10.8 Platelet Count 377 10^3/uL Normal 150-450 6 Mean Platelet Volume 12.4 fL High 7.4-10.4 Abs Lymphocytes 0.6 10^3/uL Low 1.0-4.8 Abs Monocytes 0.2 10^3/uL Normal 0-0.8 Abs Eosinophils 0.0 10^3/uL Normal 0-0.6 Abs Basophils 0.0 10^3/uL Normal 0-0.2 Abs Nucleated RBC 0.0 10^3/uL Manual Differential 02/16/2019 [facility] Neutrophil % 50.0 % Lymphocytes % 46.0 % Monocytes % 3.0 % Eosinophils % 1.0 % Microcytosis 2+ Anisocytosis 1+ Elliptocyte 1+ Type & Screen 02/16/2019 [facility] Patient Blood Type A Positive Antibody Screen NEGATIVE Laboratory test 02/16/2019 [facility] Packed Cells SEE RESULTS 7 finding BELO <SEE NOTE> Basic Metabolic 02/09/2019 [facility](fma) Sodium 143 mEq/L 134-149 Profile Potassium 3.8 mEq/L 3.6-5.5 Chloride 106 mEq/L 94-112 Carbon Dioxide 29 mEq/L 21-32 Glucose 136 mg/dL High 70-105 8 BUN 14 mg/dL 6-26 Creatinine 0.9 mg/dL 0.6-1.4 BUN/Creat Ratio 15.6 CALC 8.0-36.0 Calcium 8.8 mg/dL 8.6-10.2 GFR Non- >60 ml/min/1.73m^ >=60 GFR >60 ml/min/1.73m^ >=60 Laboratory test finding 02/09/2019 [facility](a) TSH 2.41 mIU/L 0.50-6.00 Free T4 1.19 ng/dL 0.75-1.54 Laboratory test 02/09/2019 [facility] Hemoglobin A1c 5.5% % 4.1- 5.7 finding (607)- - (Fma) CBC Auto Diff 01/12/2019 [facility] White Blood Count 2.0 Low 3.5-10.8 10^3/uL [...] 1.5-7.7 Platelet Count 396 10^3/uL Normal 150-450 9 Abs Lymphocytes 0.6 10^3/uL Low 1.0-4.8 Abs Monocytes 0.2 10^3/uL Normal 0-0.8 Abs Eosinophils 0.0 10^3/uL Normal 0-0.6 Abs Basophils 0.0 10^3/uL Normal 0-0.2 Abs Nucleated RBC 0.0 10^3/uL Granulocyte % 58.2 % Lymphocyte % 27.7 % Monocyte % 10.4 % Eosinophil % 1.6 % Basophil % 2.1 % Nucleated Red Blood Cells % 0.1 Large Platelets Present Cell Morphology 01/12/2019 [facility] Macrocytosis 2+ Anisocytosis 2+ Comp Metabolic Panel 01/12/2019 [facility] Sodium 142 mmol/L Normal 135-145 Potassium 3.7 [...] Egfr Non- 60.4 >60 Egfr 73.1 >60 10 Laboratory test finding 01/12/2019 [facility] Breast Carcinoma 36.0 U/mL <= 38.0 11 Ag(Ca27.29) Anti Nuclear Antibody 0.2 U 12 Manual Differential 12/08/2018 [facility] Platelet Morphology Giant Neutrophil % 54.0 % Lymphocytes % 40.0 % Monocytes % 5.0 % Eosinophils % 1.0 % Macrocytosis 2+ Abs Neutrophils 1.2 10^3/uL Low 1.5-7.7 Abs Lymphocytes 0.9 10^3/uL Low 1.0-4.8 Abs Monocytes 0.1 10^3/uL Normal 0-0.8 Abs Eosinophils 0.0 10^3/uL Normal 0-0.6 CBC Auto Diff 12/08/2018 [facility] White Blood Count 2.3 10^3/uL Low 3.5-10.8 Red Blood Count 3.07 10^6/uL Low 3.70-4.87 Hemoglobin 11.1 g/dL Low 12.0-16.0 Hematocrit 34 % Low 35-47 Mean Corpuscular Volume 111 fL High 80-97 Mean Corpuscular Hemoglobin 36 pg High 27-31 Mean Corpuscular HGB Conc 33 g/dL Normal 31-36 Red Cell Distribution Width 17 % High 10-15 Platelet Count 362 10^3/uL Normal 150-450 13 Mean Platelet Volume 11.8 fL High 7.4-10.4 CBC Auto Diff 12/01/2018 [facility] White Blood Count 2.0 10^3/uL Low 3.5-10.8 [...] 0.1 Platelet Count 250 10^3/uL Normal 150-450 14 Mean Platelet Volume 10.3 fL Normal 7.4-10.4 Laboratory test finding 12/01/2018 [facility] Vitamin B12 151 pg/mL Low 180-914 15 Methylmalonic Acid Mma 0.16 nmol/mL <=0.40 16 Comp Metabolic Panel 11/24/2018 [facility] Sodium 141 mmol/L Normal 135-145 Potassium 3.6 [...] Egfr Non- 62.8 >60 Egfr 76.0 >60 17 CBC Auto Diff 11/24/2018 [facility] White Blood Count 1.0 10^3/uL Low 3.5-10.8 [...] Present Platelet Count 80 10^3/uL Low 150-450 18 Mean Platelet Volume 11.9 fL High 7.4-10.4 Laboratory test 11/24/2018 [facility] Breast Carcinoma 28.2 U/mL <=38.0 19 finding Ag(Ca27.29) CBC Auto Diff 10/27/2018 [facility] White Blood Count 2.3 10^3/uL Low 3.5-10.8 Red Blood Count 3.27 10^6/uL Low 3.70-4.87 Hemoglobin 11.7 g/dL Low 12.0-16.0 Hematocrit 35 % Normal 35-47 Mean Corpuscular Volume 107 fL High 80-97 Mean Corpuscular Hemoglobin 36 pg High 27-31 Mean Corpuscular HGB Conc 33 g/dL Normal 31-36 Red Cell Distribution Width 17 % High 10.5-15 Platelet Count 220 10^3/uL Normal 150-450 20 Mean Platelet Volume 11.0 fL High 7.4-10.4 Manual Differential 10/27/2018 [facility] Platelet Morphology Giant Neutrophil % 48.0 % Lymphocytes % 45.0 % Monocytes % 4.0 % Eosinophils % 2.0 % Basophil % 1.0 % Macrocytosis 1+ Polychromasia 1+ Abs Neutrophils 1.1 10^3/uL Low 1.5-7.7 Abs Lymphocytes 1.0 10^3/uL Normal 1.0-4.8 Abs Monocytes 0.1 10^3/uL Normal 0-0.8 Abs Eosinophils 0.1 10^3/uL Normal 0-0.6 Abs Basophils 0.0 10^3/uL Normal 0-0.2 Comp Metabolic Panel 10/20/2018 [facility] Sodium 142 mmol/L Normal 135-145 Potassium 3.5 [...] Egfr Non- 61.2 >60 Egfr 74.1 >60 21 CBC Auto Diff 10/20/2018 [facility] White Blood Count 1.4 10^3/uL Low 3.5-10.8 Red Blood Count 3.07 10^6/uL Low 3.70-4.87 Hemoglobin 11.3 g/dL Low 12.0-16.0 Hematocrit 33 % Low 35-47 Mean Corpuscular Volume 107 fL High 80-97 Mean Corpuscular Hemoglobin 37 pg High 27-31 Mean Corpuscular HGB Conc 34 g/dL Normal 31-36 Red Cell Distribution Width 17 % High 10.5-15 Platelet Count 81 10^3/uL Low 150-450 22 Mean Platelet Volume 11.4 fL High 7.4-10.4 Abs Neutrophils 0.5 10^3/uL Low 1.5-7.7 23 Abs Lymphocytes 0.7 10^3/uL Low 1.0-4.8 Abs Monocytes 0.2 10^3/uL Normal 0-0.8 Abs Eosinophils 0.0 10^3/uL Normal 0-0.6 Abs Basophils 0.0 10^3/uL Normal 0-0.2 Abs Nucleated RBC 0.0 10^3/uL Granulocyte % 34.8 % Lymphocyte % 49.4 % Monocyte % 12.7 % Eosinophil % 2.4 % Basophil % 0.7 % Nucleated Red Blood Cells % 0.2 Laboratory test 10/20/2018 [facility] Breast Carcinoma 24.8 U/mL <=38.0 24 finding Ag(Ca27.29) CBC Auto Diff 09/22/2018 [facility] White Blood Count 2.3 10^3/uL Low 3.5-10.8 [...] 9.9 fL Normal 7.4-10.4 Manual Differential 09/22/2018 [facility] Platelet Morphology Large Neutrophil % 53 % Lymphocytes % 30 % Monocytes % 14 % Eosinophils % 3 % Abs Neutrophils 1.2 10^3/uL Low 1.5-7.7 Abs Lymphocytes 0.7 10^3/uL Low 1.0-4.8 Abs Monocytes 0.3 10^3/uL Normal 0-0.8 Abs Eosinophils 0.1 10^3/uL Normal 0-0.6 Macrocytosis 1+ Anisocytosis 1+ Comp Metabolic Panel 09/15/2018 [facility] Sodium 141 mmol/L Normal 135-145 Potassium 3.5 [...] Egfr Non- 63.6 >60 Egfr 77.0 >60 25 CBC Auto Diff 09/15/2018 [facility] White Blood Count 1.5 10^3/uL Low 3.5-10.8 [...] Cells % 0.1 Laboratory test finding 09/15/2018 [facility] Pathologist Review (SEE NOTE) 26 Breast Carcinoma Ag(Ca27.29) 25.7 U/mL <=38.0 27 1 Platelet count confirmed by estimate Platelets Giant Platelets Large 2 Because ethnic data is not always [...] 5 Kidney failure <15 (or dialysis) 3 Consistent with Previous Results Reported on 02/16/19. 4 Normal Range 180 to 914 Indeterminate Range 145 to 180 Deficient Range <145 5 Consistent with Previous Results Reported on 01/12/2019 6 Consistent with Slide review 7 SEE RESULTS BELOW [id number] AP PC TRANSFUSED 02/17/19 1344 8 NON-FASTING 9 Platelet count confirmed by estimate 10 Because ethnic data is not always readily [...] 15-29 5 Kidney failure <15 (or dialysis) 11 ADDITIONAL INFORMATION The testing method is a chemiluminometric immunoassay manufactured by [employer] and performed on the [employer]. Values obtained with different assay methods or kits may be different and cannot be used interchangeably. Test results cannot be interpreted as absolute evidence for the presence or absence of malignant disease. Test Performed by: [facility] [place] [address] [place] [address] 12 REFERENCE VALUE <=1.0 (Negative) Test Performed by: [facility] - [address] [place] [address] 13 Platelet count confirmed by estimate 14 Platelets Giant Platelet count confirmed by estimate 15 Normal Range 180 to 914 Indeterminate Range 145 to 180 Deficient Range <145 16 ADDITIONAL INFORMATION This test was developed and its performance characteristics determined by [facility] in a manner consistent with CLIA requirements. This test has not been cleared or approved by the U.S. Food and Drug Administration. Test Performed by: [facility] - [address] [address] 17 Because ethnic data is not always [...] 5 Kidney failure <15 (or dialysis) 18 Platelet count confirmed by estimate 19 ADDITIONAL INFORMATION The testing method is a chemiluminometric immunoassay manufactured by [employer] and performed on the [employer]. Values obtained with different assay methods or kits may be different and cannot be used interchangeably. Test results cannot be interpreted as absolute evidence for the presence or absence of malignant disease. Test Performed by: [address] [address] 20 Platelets Large Platelet count confirmed by estimate 21 Because ethnic data is not always readily [...] 15-29 5 Kidney failure <15 (or dialysis) 22 Consistent with Previous Results Reported on 09/15/18 23 Consistent with Previous Results Reported on 09/15/18 24 ADDITIONAL INFORMATION The testing method is a chemiluminometric immunoassay manufactured by [employer] and performed on the [employer]. Values obtained with different assay methods or kits may be different and cannot be used interchangeably. Test results cannot be interpreted as absolute evidence for the presence or absence of malignant disease. Test Performed by: [address] [address] 25 Because ethnic data is not always readily [...] 15-29 5 Kidney failure <15 (or dialysis) 26 Macrocytic anemia. Absolute neutropenia. Reviewed by Katia Golden MD 27 ADDITIONAL INFORMATION The testing method is a chemiluminometric immunoassay manufactured by [employer] and performed on the [employer] [place] [employer]. Values obtained with different assay methods or kits may be different and cannot be used interchangeably. Test results cannot be interpreted as absolute evidence for the presence or absence of malignant disease. Test Performed by: [address] [address] Procedures Date Code Description Status 09/17/2013 37620471 Mammogram Completed 09/27/2004 [id number] Colonoscopy Completed Medical Devices Description No Information Available Encounters Type Date Location Provider Dx Diagnosis Office Visit 02/09/2019 Main Office Marlee Lee F33.8 Other recurrent 4:00p Latoya depressive disorders R53.83 Other fatigue R73.09 Other abnormal glucose Assessments Date Code Description Provider 03/16/2019 F33.8 Other recurrent depressive disorders Rosi Resendez 02/09/2019 F33.8 Other recurrent depressive disorders Rosi Resendez 02/09/2019 R53.83 Other fatigue Latoya Resendez 02/09/2019 R73.09 Other abnormal glucose Latoya Resendez Plan of Treatment Future Appointment(s):03/31/2019 3:30 pm - Gustavo Lincoln M.D. at [facility]03/16/2019 - Rosi Resendez-CF33.8 Other recurrent depressive disordersAllComments:Medication Management Patient Understands medications she' s taking? Yes No Are there Barriers to Adherence? Yes No Has the patient been asked about herbal supplements and therapies, and OTC meds? Yes No Care Plan1. Patient has been queried about patient's goals/ preferences and functional/lifestyle goals at relevant visits. If relevant, describe: na2. Treatment goals as explained to the patient: abovecontinued management of depression 3. Are there barriers to meetingtreatment goals? Yes No If Yes, please describe:4. Self-Management goals as described to the patient: Yes No will continue present dose of wellbutrin has preop sched with pcp in next couple of weeks Functional Status Description No Information Available Mental Status Description No Information Available Referrals Description No Information Available
--- OUTSIDE RECORDS SUMMARY | 2019-03-28 19:12 | XMS REPORT | Continuity of Care Document ---
:1945 External Reference #:[id number] Author Name Harrison Duarte M.D. (transmitted by agent of provider Carlota Olivares) Address [address] [place] [address] Care Team Providers Name Role Phone Gustavo Lincoln MD - Family Care Team Information Supervisor Mail Carriers [phone] Medicine Problems Active Problems Provider Date Dislocation of internal right hip prosthesis, Harrison Duarte M.D. Onset: 10/2017 subsequent encounter Social History Type Date Description Comments Sex Unknown ETOH Use Never used alcohol Tobacco Use Start: Unknown Patient has never smoked Smoking Status Reviewed: 02/25/19 Patient has never smoked Exercise Type/Frequency Exercises sporadically Allergies, Adverse Reactions, Alerts Active Allergies Reaction Severity Comments Date Tape 02/03/2017 Tegaderm 02/03/2017 Medications Active Medications SIG Qnty Indications Ordering Date Provider Madison Pickett, 75mg Capsules DOCUMENT REVIEW SPECIALIST Prochlorperazine Maleate mandyInez, 10mg PA Tablets Trazodone HCL Inez galvan, 100mg Tablets PA Escitalopram Oxalate 1 by mouth every Unknown 20mg day Tablets Letrozole 1 by mouth every Unknown 2.5mg Tablets day Melatonin 1 tab by mouth Unknown 3mg Capsules every night at bedtime Immunizations Description No Information Available Vital Signs Date Vital Result Comment 03/03/2019 2:54pm Height 66 inches 5'6" Weight 223.00 lb Heart Rate 100 /min BP Systolic 140 mmHg BP Diastolic 76 mmHg Body Temperature 99.1 F Pain Level 2 BMI (Body Mass Index) 36.0 kg/m2 02/25/2019 1:17pm Height 66 inches 5'6" Heart Rate 78 /min BP Systolic 110 mmHg BP Diastolic 70 mmHg Respiratory Rate 16 /min Body Temperature 98.0 F Pain Level 2 Results Description No Information Available Procedures Description No Information Available Medical Devices Description No Information Available Encounters Description No Information Available Assessments Date Code Description Provider 02/25/2019 T84.020D Dislocation of internal right hip Juan Diego Allen MD prosthesis, subsequent enc Plan of Treatment No Information Available Functional Status Description No Information Available Mental Status Description No Information Available Referrals Description No Information Available
--- OUTSIDE RECORDS SUMMARY | 2019-03-28 19:12 | XMS REPORT | Continuity of Care Document ---
:1945 External Reference #:[id number] Author Name Juan Diego Allen MD (transmitted by agent of provider Carlota Olivares) Address [address] [place] [address] Care Team Providers Name Role Phone Gustavo Lincoln MD - Family Care Team Information Horseback Riding Instructor [phone] Medicine Problems Active Problems Provider Date Dislocation [...] Ordering Date Provider Madison Pickett, 75mg Capsules CHEMICAL ENGINEERING TECHNICIAN Prochlorperazine Maleate mandy Inez, 10mg PA Tablets Trazodone HCL Inez galvan, 100mg Tablets PA Escitalopram Oxalate 1 by mouth every Unknown 20mg day Tablets Letrozole 1 by mouth every Unknown 2.5mg Tablets day Melatonin 1 tab by mouth Unknown 3mg Capsules every night at bedtime Immunizations Description No Information Available Vital Signs Date Vital Result Comment 02/25/2019 1:17pm Height 66 inches 5'6" Heart Rate 78 /min BP Systolic 110 mmHg BP Diastolic 70 mmHg Respiratory Rate 16 /min Body Temperature 98.0 F Pain Level 2 05/20/2018 11:21am Height 66 inches 5'6" Weight 225.00 lb BP Systolic 114 mmHg BP Diastolic 68 mmHg Respiratory Rate 20 /min Pain Level 0 BMI (Body Mass Index) 36.3 kg/m2 Results Description No Information Available Procedures Description No Information Available Medical Devices Description No Information Available Encounters Description No Information Available Assessments Date Code Description Provider 02/25/2019 T84.020D Dislocation of internal right hip Juan Diego Allen MD prosthesis, subsequent enc Plan of Treatment 02/25/2019 - Juan Diego Allen MDT84.020D Dislocation of internal right hip prosthesis, subsequent encFollow up:Follow up: with Dr. Duarte in the next 2 weeks Functional Status Description No Information Available Mental Status Description No Information Available Referrals Description No Information Available
[2019-03-28 19:49] LABS: Hematocrit 21 % (35-47); Hemoglobin 6.6 g/dL (12.0-16.0); Mean Corpuscular HGB Conc 32 g/dL (31-36); Mean Corpuscular Hemoglobin 36 pg (27-31); Mean Corpuscular Volume 114 fL (80-97); Mean Platelet Volume 11.5 fL (7.4-10.4); Platelet Count 560 10^3/uL (150-450); Red Blood Count 1.83 10^6 /uL (3.70-4.87); Red Cell Distribution Width 24 % (10-15)
[2019-03-28 19:59] LABS: ALT 6 U/L (7-52); AST 14 U/L (13-39); Albumin 3.8 g/dL (3.2-5.2); Alkaline Phosphatase 69 U/L (34-104); Anion Gap 7 mmol/L (2-11); BUN/Creatinine Ratio 17.6 (8-20); Blood Urea Nitrogen 15 mg/dL (6-24); CO2 Carbon Dioxide 28 mmol/L (22-32); Calcium 8.7 mg/dL (8.6-10.3); Chloride 106 mmol/L (101-111); EGFR African American 79.1 (>60); EGFR Non-African American 65.4 (>60); Globulin 1.9 g/dL (2-4); Glucose 103 mg/dL (70-100); Potassium 3.3 mmol/L (3.5-5.0); Sodium 141 mmol/L (135-145); Total Protein 5.7 g/dL (6.4-8.9)
[2019-03-28 20:02] LABS: Troponin I 0.01 ng/mL (<0.04)
--- NOTE | 2019-03-28 20:02 | ED ---
HPI Cardiac - HPI Summary HPI Summary: Patient is a 73 y/o F w/ breast CA w/ metastases to bones and lung and Hx of PNA , anemia who presents to [facility] with complaints of heart racing and dyspnea. She states that Sx have been present for the past few days and are worse with exertion. Patient additionally endorses cough and fatigue. Patient is followed by Dr. Lema and has been on Ibrance and Letrozole for the past three years. She reports that she had a blood transfusion around 1.5 months ago due to anemia. In room, vitals are o2 91 on RA, pulse 87, BP 123/84. On triage, pain is denied. Home medications and allergies are reviewed. - History of Current Complaint Chief Complaint: EDShortnessOfBreath Stated Complaint: SHORT OF BREATH , RAPID HEART RATE Time Seen by Provider: 03/28/19 19:56 Hx Obtained From: Patient Timing: Lasting Days Current Severity: None - pain denied Pain Intensity: 0 Pain Scale Used: 0-10 Numeric Character: Fast Aggravating Factor(s): Exertion Associated Signs and Symptoms: Positive: Shortness of Breath, Palpitations - heart racing, Cough, Other: - fatigue - Allergy/Home Medications Allergies/Adverse Reactions: Allergies Allergy/AdvReac Type Severity Reaction Status Date / Time Adhesive Tape AdvReac Intermediate Rash And Verified 03/28/19 19:05 [Tegaderm Dressing] Itching tegaderm Allergy Rash And Uncoded 02/04/17 09:12 Itching PMH/Surg Hx/FS Hx/Imm Hx Endocrine/Hematology History: Denies: Hx Diabetes, Hx Systemic Lupus Erythematosus Cardiovascular History: Denies: Hx Congestive Heart Failure, Hx Hypertension, Hx Pacemaker/ICD Comment Only: Other Cardiovascular Problems/Disorders - PORT 09/2013 Respiratory History: Reports: Hx Pleural Effusion, Other Respiratory Problems/ Disorders - SOB ON EXCERTION, HAS BEEN ON CHEMO Denies: Hx Asthma GI History: Reports: Hx Gastroesophageal Reflux Disease, Hx Hiatal Hernia History: Denies: Hx Dialysis, Hx Renal Disease Musculoskeletal History: Reports: Other Musculoskeletal History - right hip replacement Denies: Hx Rheumatoid Arthritis Sensory History: Denies: Hx Hearing Aid Psychiatric History: Reports: Hx Depression Denies: Hx Panic Disorder - Cancer History Cancer Type, Location and Year: Left breast CA, with mets Hx Chemotherapy: Yes Hx Radiation Therapy: No - Surgical History Surgery Procedure, Year, and Place: R hip replacement 2009 [facility],Hiatal hernia repair and Salvador fundoplication (GERD) 2008,R inguinal exploratory surgery,[facility], POWER PORT RIGHT CHEST WALL; Infectious Disease History: No Infectious Disease History: Denies: Traveled Outside the [place] in Last 30 Days - Family History Known Family History: Positive: Other - CVA, lymphoma - Social History Alcohol Use: None Alcohol Amount: 1-2 x per year Substance Use Type: Reports: None Hx Tobacco Use: No Smoking Status (MU): Never Smoked Tobacco Review of Systems Positive: Fatigue Positive: Palpitations Positive: Shortness Of Breath, Cough All Other Systems Reviewed And Are Negative: Yes Physical Exam - Summary Physical Exam Summary: Appearance: Pale, chronically ill appearing, and well nourished, lying in bed comfortably Skin: Warm, dry, no obvious rash Eyes: sclera anicteric, there is conjunctival pallor ENT: mucous membranes moist, pharynx appears normal Neck: Supple, nontender Respiratory: Clear to auscultation, no signs of respiratory distress Cardiovascular: Normal S1, S2. No murmurs. Normal distal pulses in tibial and radial bilaterally. Abdomen: Soft, nontender, normal active bowel sounds present Musculoskeletal: Normal, Strength/ROM Intact Neurological: A&Ox3, awake and alert, mentation is normal, speech is fluent and appropriate Psychiatric: affect is normal, does not appear anxious or depressed Triage Information Reviewed: Yes Vital Signs On Initial Exam: Initial Vitals Temp Pulse Resp BP Pulse Ox 100 F 87 16 129/65 93 03/28/19 19:00 03/28/19 19:00 03/28/19 19:00 03/28/19 19:00 03/28/19 19:00 Vital Signs Reviewed: Yes Procedures - Sedation Patient Received Moderate/Deep Sedation with Procedure: No Diagnostics - Vital Signs Vital Signs Temp Pulse Resp BP Pulse Ox 03/28/19 19:00 100 F 87 16 129/65 93 - Laboratory Lab Results: Lab Results 03/28/19 Range/Units 19:26 WBC Pending RBC 1.83 L (3.70-4.87) 10^6 /uL Hgb 6.6 L (12.0-16.0) g/dL Hct 21 L (35-47) % MCV 114 H (80-97) fL MCH 36 H (27-31) pg MCHC 32 (31-36) g/dL RDW 24 H (10-15) % Plt Count 560 H (150-450) 10^3/uL MPV 11.5 H (7.4-10.4) fL Neut % (Auto) Pending Lymph % (Auto) Pending [place] % (Auto) Pending Eos % (Auto) Pending Baso % (Auto) Pending Absolute Neuts (auto) Pending Absolute Lymphs (auto) Pending Absolute Monos (auto) Pending Absolute Eos (auto) Pending Absolute Basos (auto) Pending Absolute Nucleated RBC Pending Nucleated RBC % Pending Result Diagrams: 03/28/19 19:26 03/28/19 19:26 Lab Statement: Any lab studies that have been ordered have been reviewed, and results considered in the medical decision making process. - Radiology CXR Radiology Interpretation Completed By: ED Physician Summary of Radiographic Findings: Left pleural effusion noted, pending official report. - EKG 1954 Cardiac Rate: NL - rate of 85 BPM EKG Rhythm: Sinus Rhythm Summary of EKG Findings: NSR at 85 BPM, P waves, QRS complex, and T waves are within normal limits, T waves and intervals are normal, no ischemic changes. This is a normal EKG. This EKG was reviewed and interpreted by Dr. Mcwilliams. Disposition - Course Course Of Treatment: Patient is a 73 y/o F w/ breast CA w/ metastases to bones and lung and Hx of PNA, anemia who presents to [facility] with complaints of heart racing and dyspnea. She states that Sx have been present for the past few days and are worse with exertion. Patient is chronically-ill appearing with conjunctival pallor. CXR showed left pleural effusion. NSR at 85 BPM, P waves, QRS complex, and T waves are within normal limits, T waves and intervals are normal, no ischemic changes. This is a normal EKG. Bloodwork was obtained. Abnormal values include WBC 2, RBC 1.83, Hgb 6.6, Hct 21, MCV 114, MCH 36, RDW 24, plt count 560, MPV 11.5, abs neuts (manual) 1.1, abs lymphs (manual) 0.6, potassium 3.3, glucose 103, total bilirubin 1.2, ALT 6, total protein 5.7, globulin 1.9. Patient is Blood Type A. 2015 Patients case was discussed with Dr. Thacker. Dr. Thacker recommends admission, patient to receive blood transfusion. Iron studies were obtained as well. 38 - Patient's case was discussed with Dr. Cervantes, Dr. Cervantes accepts for admission. - Diagnoses Provider Diagnoses: Severe anemia, Pleural effusion, left - Physician Notifications Discussed Care Of Patient With: Andre Thacker Time Discussed With Above Provider: 20:15 Instructed by Provider To: Other - 2014 Patients case was discussed with Dr. Thacker. Dr. Thacker recommends admission, patient to receive blood transfusion. Iron studies were obtained as well. 38 - Patient's case was discussed with Dr. Cervantes , Dr. Cervantes accepts for admission. Discharge ED - Sign-Out/Discharge Documenting (check all that apply): Patient Departure - admit - Discharge Plan Condition: Fair Disposition: ADMITTED TO [facility] - Billing Disposition and Condition Condition: FAIR Disposition: Admitted to [facility] - Attestation Statements Document Initiated by Tk: Yes Documenting Melissaibe: RENE GARIBAY Provider For Whom Tk is Documenting (Include Credential): ZURDO MCWILLIAMS MD Scribe Attestation: RENE Pelayo, scribed for ZURDO MCWILLIAMS MD on 03/29/19 at 0542. Scribe Documentation Reviewed: Yes Provider Attestation: The documentation as recorded by the RENE del rio accurately reflects the service I personally performed and the decisions made by , ZURDO MCWILLIAMS MD Status of Scribzeeshan Document: Viewed
[2019-03-28 20:10] LABS: Eosinophil % 0.2 %; Lymphocyte % 35.3 %
[2019-03-28 20:17] LABS: Microcytosis 1+
[2019-03-28 20:18] LABS: Polychromasia 1+
[2019-03-28 20:38] LABS: % Iron Saturation 26 % (15-55); Iron 59 ug/dL (50-212); Total Iron Binding Capacity 231 mcg/dL (250-450); Transferrin 165 mg/dL (203-362)
[2019-03-28 20:56] LABS: Ferritin 371.8 ng/mL (11-307)
[2019-03-28] MEDS ORDERED: Ibuprofen TAB* 400 MG PO ONE (21:26)
[2019-03-29] MEDS ORDERED: Al Hydrox/Mg Hydrox/Simet LIQ* 30 ML UDC PO PRN (00:54)
[2019-03-29] MEDS ORDERED: traZODone TAB* 50 MG TAB PO PRN (00:57)
[2019-03-29] MEDS ORDERED: Potassium Chlor TAB* 20 MEQ TAB.ER PO ONE (01:25)
--- NOTE | 2019-03-29 03:13 | HP ---
CC: Dr. Lema; Dr. Thacker; Dr. Lincoln * HISTORY AND PHYSICAL: DATE OF ADMISSION: 03/29/19 PRIMARY CARE PROVIDER: Dr. Lincoln. CHIEF COMPLAINT: Shortness of breath. HISTORY OF PRESENT ILLNESS: Shanon Bryant is a 73-year-old female with a history of metastatic carcinoma of the breast with metastasis to the lung as well as right femur who is currently undergoing chemotherapy who presented to the hospital complaining of shortness of breath for the past month, worse over the past few days. Also, in the past couple of days, she noted that every time she tries to ambulate, her heart rate would go up. She denies any chest pain. She denies any cough. She was noted to have a hemoglobin at 6.6 and she is going to be admitted with a diagnosis of symptomatic anemia. Her last transfusion was in February 2019. PAST MEDICAL HISTORY: 1. Breast cancer metastatic to bone and lung, currently undergoing chemotherapy. 2. Status post Pam fundoplication for hiatal hernia. 3. History of gastroesophageal reflux disease. MEDICATION LIST: Include: 1. Trazodone 50 mg at bedtime p.r.n. 2. Bupropion SR 100 mg daily. 3. Compazine 10 mg daily p.r.n. 4. Pramipexole 0.125 mg at bedtime. 5. Palbociclib 75 mg daily. 6. Letrozole 2.5 mg daily. 7. Lexapro 20 mg daily. 8. Acetaminophen on a p.r.n. basis. ALLERGIES: ADHESIVE TAPE and TEGADERM. FAMILY HISTORY: Positive for father of "old age" in his 90s. Mother secondary to CVA in her 80s. Brother had lymphoma. SOCIAL HISTORY: The patient denies any tobacco, alcohol, or drug use. She lives with her , Misael, who is her surrogate. REVIEW OF SYSTEMS: Please see history of present illness. All the remaining 12 systems were reviewed with the patient and were otherwise negative. PHYSICAL EXAMINATION GENERAL: The patient is a very pleasant 73-year-old female, who is in no acute distress, alert, awake, and oriented x3. VITAL SIGNS: Blood pressure of 129/62, heart rate of 93 and regular, respiratory rate 18, oxygen saturation 96% on 3 L of oxygen nasal cannula, temperature 98.9. HEENT: Head: Atraumatic, normocephalic. Eyes: Pupils are equal, reactive to light and accommodation. Oropharynx clear. Mucosa moist. NECK: Supple. No JVD. No bruits bilaterally. RESPIRATORY: Clear to auscultation bilaterally. CARDIOVASCULAR: Regular rate and rhythm with 3/6 systolic ejection murmur noted on auscultation of the entire upper pericardium. ABDOMEN: Soft and nontender. Bowel sounds present in all 4 quadrants. EXTREMITIES: There is no edema. Pulses +2 bilaterally. No clubbing or cyanosis. SKIN: On evaluation of the skin, the patient has right-sided subclavian port in place that was accessed in the emergency department. There was no evidence of rashes or ecchymotic areas. Notable for skin pallor. NEUROLOGIC: On neuro evaluation, cranial nerves II through XII grossly intact. Motor strength is 5/5 bilaterally. DIAGNOSTIC STUDIES/LAB DATA: Laboratory data showed white blood cell count of 2.0, hemoglobin of 6.6, hematocrit of 21, MCV of 114, and platelets of 560. Sodium of 141, potassium 3.3, chloride 106, carbon dioxide 28, BUN 15, creatinine 0.85. Liver function tests showed total bilirubin of 1.2, AST of 14 , ALT of 6, alkaline phosphatase of 59. TIBC of 231. Percent iron saturation 26, transferrin is 165, ferritin 371. Vitamin B12 level was checked in February 2019 was 387. Methylmalonic acid was 0.16. Also in February 2019, troponin was 0.01. The patient's EKG showed normal sinus rhythm with heart rate of 85 beats per minute with ST depression in V4 and V6 of approximately 1 mm, which is new comparing with an EKG from 2014. PA and lateral chest x-ray reviewed by myself prior to the official radiologist' s report shows chronic elevation of right-sided hemidiaphragm and questionable small left-sided pleural effusion. ASSESSMENT AND PLAN: 1. Anemia. The patient's anemia is macrocytic. It is probably related due to her chemotherapy medications. She is actually being currently transfused with 1 unit of packed red cells. We will check hemoglobin after the transfusion to see if she requires another unit of blood afterwards. I will check stool Hemoccult, but the patient reports no melena or bright red blood per rectum. 2. In regard to the patient's history of depression, her Lexapro and bupropion are going to be continued. 3. For her metastatic breast cancer, her outpatient chemotherapy and medication are going to be continued. 4. For DVT prophylaxis, due to the patient's history of malignancy and higher risk of DVT with negative history of possibility of bleeding, the patient is going to be placed on heparin subcutaneously. 5. The patient's code status is full and her surrogate is her . TIME SPENT: Approximately 55 minutes were spent on admission of this patient, more than half that time was spent [id number] with the patient during the interview and physical exam. [id number]/[facility] #: [id number] JOSÉ
[2019-03-29] MEDS: Heparin VIAL(*) 5000 UNITS/ML VIAL (FIVE THOUSAND) SUBCUT SCH ×3 (06:12→20:56)
[2019-03-29 06:39] LABS: Hematocrit 20 % (35-47); Hemoglobin 6.9 g/dL (12.0-16.0); Mean Corpuscular HGB Conc 34 g/dL (31-36); Mean Corpuscular Hemoglobin 36 pg (27-31); Mean Corpuscular Volume 105 fL (80-97); Mean Platelet Volume 11.2 fL (7.4-10.4); Platelet Count 465 10^3/uL (150-450); Red Blood Count 1.93 10^6 /uL (3.70-4.87); Red Cell Distribution Width 27 % (10-15); White Blood Count 2.1 10^3/uL (3.5-10.8)
[2019-03-29 07:05] LABS: ABS Lymphocytes 0.8 10^3/ul (1.0-4.8); ABS Monocytes 0.3 10^3/ul (0-0.8); Eosinophil % 0.2 %; Lymphocyte % 37.2 %; Nucleated Red Blood Cells % 0.2; Tear Drop Cells 1+
[2019-03-29] MEDS ORDERED: PALBOCICLIB 75 MG PO SCH (09:00)
[2019-03-29] MEDS: LETROZOLE 2.5 MG PO SCH (10:05)
[2019-03-29] MEDS: Prochlorperazine TAB* 10 MG PO SCH (10:05)
[2019-03-29] MEDS: Docusate CAP* 100 MG PO SCH ×2 (10:05→20:56)
[2019-03-29] MEDS: Escitalopram * 20 MG TABLET PO SCH (10:08)
[2019-03-29] MEDS: buPROPion SR TAB.SR* 100 MG PO SCH (10:08)
--- NOTE | 2019-03-29 10:37 | PN ---
Progress Note - Progress Note Date of Service: 03/29/19 SOAP: Subjective: []Admitted overnight with symptomatic anemia, racing HR and SOB. "I get real shaky and my legs ache." Received 1 unit PRBCs overnight. Still very tired and weak. Feels SOB with minimal exertion. Is due to resume Ibrance tomorrow (on 5 week cycle) and has a pending surgical repair of her hip in approx. 1 mo. Medications: Acetaminophen (Tylenol Tab*) 650 mg PO Q4H PRN PRN Reason: PAIN-MILD/TEMP >/= 100.4 Al Hydrox/Mg Hydrox/Simethicone (Maalox Plus*) 30 ml PO Q6H PRN PRN Reason: INDIGESTION Bupropion HCl (Wellbutrin Sr Tab*) 100 mg PO DAILY [facility] Last Admin: 03/29/19 10:08 Dose: 100 mg Docusate Sodium (Colace Cap*) 100 mg PO BID [facility] Last Admin: 03/29/19 10:05 Dose: 100 mg Escitalopram Oxalate (Lexapro *) 20 mg PO DAILY [facility] Last Admin: 03/29/19 10:08 Dose: 20 mg Heparin Sodium (Porcine) (Heparin Vial(*)) 5,000 units SUBCUT Q8HR [facility] Last Admin: 03/29/19 06:12 Dose: 5,000 units Letrozole (Femara (Nf)) 2.5 mg PO DAILY [facility] Last Admin: 03/29/19 10:05 Dose: 2.5 mg Pramipexole Dihydrochloride (Mirapex Tab*) 0.125 mg PO BEDTIME [facility] Prochlorperazine (Compazine Tab*) 10 mg PO DAILY [facility] Last Admin: 03/29/19 10:05 Dose: 10 mg Trazodone HCl (Desyrel Tab*) 50 mg PO BEDTIME PRN PRN Reason: SLEEP Objective: [] Vital Signs Temp Pulse Resp BP Pulse Ox 98.1 F 88 20 114/53 98 03/29/19 07:15 03/29/19 07:15 03/29/19 07:15 03/29/19 07:15 03/29/19 07:15 A&Ox3, EOMI, neuro grossly non-focal Pale HRR, S1S2 with FANNIE III/ LS clear bilat., mild dyspnea noted while talking +PP=bilat., no edema, no cording on tenderness to bilat. calfs Laboratory Results - last 24 hr 03/28/19 03/28/19 03/28/19 19:23 19:26 19:26 WBC 2.0 L RBC 1.83 L Hgb 6.6 L Hct 21 L MCV 114 H MCH 36 H MCHC 32 RDW 24 H Plt Count 560 H MPV 11.5 H Neut % (Auto) 52.8 Lymph % (Auto) 35.3 [place] % (Auto) 10.9 Eos % (Auto) 0.2 Baso % (Auto) 0.8 Absolute Neuts (auto) Not Reportable Absolute Lymphs (auto) Not Reportable Absolute Monos (auto) Not Reportable Absolute Eos (auto) Not Reportable Absolute Basos (auto) Not Reportable Absolute Nucleated RBC Not Reportable Immature Gran % 3.0 Neutrophils % 54.0 Band Neutrophils % 3.0 Lymphocytes % 32.0 Monocytes % 10.0 Eosinophils % 1.0 Nucleated RBC % Not Reportable Abs Neuts (Manual) 1.1 L Abs Lymphs (Manual) 0.6 L Abs Monocytes (Manual) 0.2 Giant Platelets Present Normal RBC Morphology Not Reportable Polychromasia 1+ Anisocytosis 2+ Microcytosis 1+ Macrocytosis 2+ Tear Drop Cells Elliptocytes Sodium 141 Potassium 3.3 L Chloride 106 Carbon Dioxide 28 Anion Gap 7 BUN 15 Creatinine 0.85 Est GFR ( Amer) 79.1 Est GFR (Non-Af Amer) 65.4 BUN/Creatinine Ratio 17.6 Glucose 103 H Lactic Acid Calcium 8.7 Iron 59 TIBC 231 L % Saturation 26 Unsat Iron Binding < 216 Transferrin 165 L Ferritin 371.8 H Total Bilirubin 1.20 H AST 14 ALT 6 L Alkaline Phosphatase 69 Troponin I 0.01 Total Protein 5.7 L Albumin 3.8 Globulin 1.9 L Albumin/Globulin Ratio 2.0 Blood Type A Positive Antibody Screen Positive Antibody Identification Anti-E Direct Antiglob Test Negative Crossmatch See Detail 03/28/19 03/29/19 03/29/19 19:26 06:18 06:18 WBC 2.1 L RBC 1.93 L Hgb 6.9 L Hct 20 L MCV 105 H MCH 36 H MCHC 34 RDW 27 H Plt Count 465 H D MPV 11.2 H Neut % (Auto) 46.2 Lymph % (Auto) 37.2 [place] % (Auto) 14.3 Eos % (Auto) 0.2 Baso % (Auto) 2.1 Absolute Neuts (auto) 1.0 L Absolute Lymphs (auto) 0.8 L Absolute Monos (auto) 0.3 Absolute Eos (auto) 0.0 Absolute Basos (auto) 0.0 Absolute Nucleated RBC 0.0 Immature Gran % Neutrophils % Band Neutrophils % Lymphocytes % Monocytes % Eosinophils % Nucleated RBC % 0.2 Abs Neuts (Manual) Abs Lymphs (Manual) Abs Monocytes (Manual) Giant Platelets Present Normal RBC Morphology Polychromasia Anisocytosis 3+ Microcytosis Macrocytosis Tear Drop Cells 1+ Elliptocytes 1+ Sodium Potassium Chloride Carbon Dioxide Anion Gap BUN Creatinine Est GFR ( Amer) Est GFR (Non-Af Amer) BUN/Creatinine Ratio Glucose Lactic Acid 1.6 Calcium Iron TIBC % Saturation Unsat Iron Binding Transferrin Ferritin Total Bilirubin AST ALT Alkaline Phosphatase Troponin I 0.02 Total Protein Albumin Globulin Albumin/Globulin Ratio Blood Type Antibody Screen Antibody Identification Direct Antiglob Test Crossmatch Assessment: []73 yo female with metastatic breast cancer on Ibrance/Letrozol for nearly 3 years presenting with symptomatic anemia and tachycardia. She received 1 unit of PRBCs overnight with minimal response in hmg increasing concern for blood loss, though still most likely related to treatment. Plan: []1. Anemia: transfuse 1 unit PRBCs today, reviewed risk and benefits, pt. denied quesitons and concerns - Check B12 today - Repeat CBC this afternoon and tomorrow AM - Check stool occult blood 2. Tachycardia: secondary to anemia, cont. to monitor on tele - echo this AM pending 3. Breast Cancer: not currently on chemo - next cycle dependent on improvement in counts Full Code Dispo: inpt. care for cont.'d work-up of symptomatic anemia
[2019-03-29 11:39] LABS: BUN/Creatinine Ratio 24.1 (8-20); Calcium 8.5 mg/dL (8.6-10.3); EGFR African American 86.1 (>60); EGFR Non-African American 71.1 (>60); Potassium 3.5 mmol/L (3.5-5.0)
--- NOTE | 2019-03-29 11:56 | ECHO ---
*[facility]* [place] [address] Fax #: [phone] Transthoracic Echocardiogram Patient: Shanon Bryant : 1945 Study Date: 03/29/2019 Age: 73 Gender: F HR: 87 bpm Height: 66 in /167.6 cm BSA: 2 m^2 Weight: 199.6 lb /90.7 kg BMI: 32.3 kg/m^2 *Regional Medical Director: Clarisa Spicer [facility] *Referring Physician: * Patti Cervantes *Reading Physician: * Rodger Turner MD Indications: Murmur. History: Metastatic breast cancer, chemotherapy. Conclusions Summary: - Left ventricle: Systolic function is normal. The estimated ejection fraction is 55-60%. Wall motion is normal; there are no regional wall motion abnormalities. - Left atrium: The atrium is severely dilated. - Mitral valve: There is no evidence of stenosis. There is no significant regurgitation. - Aortic valve: Valve mobility is restricted. The findings are consistent with moderate stenosis. There is no significant regurgitation. The mean systolic gradient is 26.0 mm Hg. The valve area by the peak velocity method is 1.20 cm^2. - Tricuspid valve: There is mild regurgitation. - Pericardium, extracardiac: There is no significant pericardial effusion. - Compared to study of 09/21/13, the left ventricle function is the same, The moderate is new Study data: Transthoracic echocardiogram. Procedure: Transthoracic echocardiography was performed. Image quality was good. Complete 2D, spectral Doppler, and color flow Doppler. Location: Bedside. Patient status: Inpatient. Patient room number: 434. Rhythm: Normal sinus rhythm. Findings Left ventricle: The cavity size is normal. Wall thickness is mildly increased. Systolic function is normal. The estimated ejection fraction is 55-60%. Wall motion is normal; there are no regional wall motion abnormalities. Doppler parameters are consistent with abnormal left ventricular relaxation (grade 1 diastolic dysfunction). Right ventricle: The cavity size is normal. Systolic function is normal. Left atrium: The atrium is severely dilated. Right atrium: The atrium is normal in size. Mitral valve: The Mitral valve annulus appears calcified. The leaflets are mildly thickened. There is no evidence of stenosis. There is no significant regurgitation. Aortic valve: The annulus is mildly calcified. The valve is trileaflet. The leaflets are mildly thickened. Valve mobility is restricted. The findings are consistent with moderate stenosis. There is no significant regurgitation. Tricuspid valve: The leaflets are normal thickness. There is no evidence of stenosis. There is mild regurgitation. Pulmonic valve: The leaflets are normal thickness. There is no evidence of stenosis. There is no significant regurgitation. Aorta: The aortic root appears normal. Pericardium: There is no significant pericardial effusion. Pulmonary arteries: The main pulmonary artery is normal-sized. Systolic pressure is at the upper limits of normal. Systemic veins: Inferior vena cava: The vessel is normal in size. There is (< 50%) respiratory change in the IVC dimension. Measurements Left ventricle Value Ref Aortic valve continued Value Ref REGI, LAX 4.7 cm 3.8 - 5.2 Peak grad, S 49.0 mm Hg ----- ESD, LAX 2.7 cm 2.2 - 3.5 LVOT/AV, VTI ratio 0.4 ----- FS, LAX 43 % 27 - 45 SARAH, VTI 1.10 cm^2 ----- PW, ED, LAX (H) 1.1 cm 0.6 - 0.9 SARAH, Vmax 1.20 cm^2 ----- EF 74 % 54 - 74 E', lat jose, TDI (L) 8.6 cm/sec >=10.0 Mitral valve Value R ef E/e', lat jose, 16 Peak E 1.36 m/sec ---- - TDI Peak A 1.46 m/sec ----- E', med jose, TDI 7.7 cm/sec >=7.0 Decel time 158 ms - ---- E/e', med jose, 18 PHT 88 ms ---- - TDI Mean grad, D 5.0 mm Hg ----- E', avg, TDI 8.2 cm/sec Peak grad, D 8.0 mm Hg ---- - E/e', avg, TDI (H) 17 <=14 Peak E/A ratio 0.9 - ---- MVA, PHT 2.5 cm^2 ----- LVOT Value Ref Diam, S 2.00 cm Pulmonic valve Value Ref Area 3.1 cm^2 Peak v, S 0.94 m/sec ----- Peak sina, S 1.3 m/sec Peak grad, S 4.0 mm Hg ----- VTI, S 28.0 cm Peak grad, S 7 mm Hg Tricuspid valve Value Ref Mean grad, S 4 mm Hg TR peak v (H) 2.82 m/sec <=2.8 Peak RV-RA grad, S 32 mm Hg ----- Ventricular septum Value Ref IVS, ED (H) 1.3 cm 0.6 - 0.9 Aortic root Value Ref Root diam 3.0 cm <4.1 Right ventricle Value Ref REGI, LAX 2.8 cm Ascending aorta Value Ref REGI minor ax, A4C 3.4 cm 1.9 - 3.5 AAo AP diam, S 2.7 cm ----- mid Pressure, S 35 mm Hg Decending aorta Value Ref Buddy peak sina 0.82 m/sec ----- Left atrium Value Ref AP dim, ES (H) 4.50 cm 2.70 - Pulmonary artery Value Ref 3.80 Pressure, S 31.0 mm Hg ----- ML dim, A4C 4.6 cm SI dim, A4C 5.4 cm Inferior vena cava Value Ref Vol/bsa, ES, A/L (H) 52 ml/m^2 16 - 34 Diam 2.0 cm ----- Right atrium Value Ref Pulmonary veins Value Ref SI dim, ES 3.7 cm 3.4 - 5.3 Peak v, S 0.91 m/sec ----- ML dim, ES, A4C 3.7 cm 2.6 - 4.4 Peak v, D 0.75 m/sec ----- Estimated RAP 3 mm Hg Peak S/D ratio 1.2 ----- A rev duration 71 ms ----- Aortic valve Value Ref Jose diam, ED 2.0 cm Peak v, S 3.5 m/sec VTI, S 79.0 cm Mean grad, S 26.0 mm Hg Legend: (L) and (H) tesha values outside specified reference range. Prepared and electronically signed by Rodger Turner MD 03/29/2019 11:56
[2019-03-29 16:57] LABS: Hematocrit 22 % (35-47); Hemoglobin 7.4 g/dL (12.0-16.0); Mean Corpuscular HGB Conc 34 g/dL (31-36); Mean Corpuscular Hemoglobin 34 pg (27-31); Mean Corpuscular Volume 99 fL (80-97); Mean Platelet Volume 10.4 fL (7.4-10.4); Platelet Count 423 10^3/uL (150-450); Red Blood Count 2.18 10^6 /uL (3.70-4.87); Red Cell Distribution Width 32 % (10-15)
[2019-03-29 17:04] LABS: ABS Lymphocytes 0.7 10^3/ul (1.0-4.8); ABS Monocytes 0.3 10^3/ul (0-0.8); ABS Neutrophils 0.8 10^3/ul (1.5-7.7); Eosinophil % 0.3 %; Lymphocyte % 38.7 %; Nucleated Red Blood Cells % 0.2
[2019-03-29] MEDS: Pramipexole TAB* 0.125 MG PO SCH (20:56)
[2019-03-30] MEDS: Heparin VIAL(*) 5000 UNITS/ML VIAL (FIVE THOUSAND) SUBCUT SCH ×3 (05:43→21:37)
[2019-03-30 06:34] LABS: Albumin 3.5 g/dL (3.2-5.2); Calcium 8.4 mg/dL (8.6-10.3); Potassium 3.9 mmol/L (3.5-5.0); Total Bilirubin 2.2 mg/dL (0.2-1.0)
[2019-03-30 06:40] LABS: Albumin/Globulin Ratio 1.9 (1-3); BUN/Creatinine Ratio 23.1 (8-20); EGFR African American 87.4 (>60); EGFR Non-African American 72.2 (>60); Globulin 1.8 g/dL (2-4); Total Protein 5.3 g/dL (6.4-8.9)
[2019-03-30 07:02] LABS: ABS Lymphocytes 0.7 10^3/ul (1.0-4.8); ABS Monocytes 0.3 10^3/ul (0-0.8); ABS Neutrophils 1.1 10^3/ul (1.5-7.7); Eosinophil % 0.3 %; Hematocrit 22 % (35-47); Hemoglobin 7.4 g/dL (12.0-16.0); Lymphocyte % 30.6 %; Mean Corpuscular HGB Conc 34 g/dL (31-36); Mean Corpuscular Hemoglobin 34 pg (27-31); Mean Corpuscular Volume 100 fL (80-97); Nucleated Red Blood Cells % 0.1; Red Blood Count 2.18 10^6 /uL (3.70-4.87); Red Cell Distribution Width 32 % (10-15); White Blood Count 2.2 10^3/uL (3.5-10.8)
[2019-03-30] MEDS: Acetaminophen TAB* 325 MG PO PRN ×2 (07:48→21:37)
[2019-03-30 08:40] LABS: Mean Platelet Volume 11.2 fL (7.4-10.4); Platelet Count 389 10^3/uL (150-450)
[2019-03-30] MEDS ORDERED: Influenza VAC *QUAD* 2019-20* 0.5 ML SYRINGE IM ONE (09:00)
[2019-03-30] MEDS: Prochlorperazine TAB* 10 MG PO SCH (09:08)
[2019-03-30] MEDS: Docusate CAP* 100 MG PO SCH ×2 (09:08→21:37)
[2019-03-30] MEDS: Escitalopram * 20 MG TABLET PO SCH (09:09)
[2019-03-30] MEDS: LETROZOLE 2.5 MG PO SCH (09:09)
[2019-03-30] MEDS: buPROPion SR TAB.SR* 100 MG PO SCH (09:09)
[2019-03-30] MEDS ORDERED: Furosemide IV* 10 MG/ML 2 ML VIAL (20 MG) IV ONE (09:59)
[2019-03-30] MEDS: Pramipexole TAB* 0.125 MG PO SCH (21:37)
[2019-03-31] MEDS: Heparin VIAL(*) 5000 UNITS/ML VIAL (FIVE THOUSAND) SUBCUT SCH ×2 (04:53→14:24)
[2019-03-31 05:31] LABS: Hematocrit 23 % (35-47); Hemoglobin 7.8 g/dL (12.0-16.0); Mean Corpuscular HGB Conc 34 g/dL (31-36); Mean Corpuscular Hemoglobin 33 pg (27-31); Mean Corpuscular Volume 98 fL (80-97); Red Blood Count 2.37 10^6 /uL (3.70-4.87); Red Cell Distribution Width 28 % (10-15)
[2019-03-31 05:40] LABS: Albumin 3.3 g/dL (3.2-5.2); Albumin/Globulin Ratio 1.8 (1-3); BUN/Creatinine Ratio 24.4 (8-20); Calcium 8.3 mg/dL (8.6-10.3); EGFR African American 87.4 (>60); EGFR Non-African American 72.2 (>60); Globulin 1.8 g/dL (2-4); Potassium 3.6 mmol/L (3.5-5.0); Total Bilirubin 1.4 mg/dL (0.2-1.0); Total Protein 5.1 g/dL (6.4-8.9)
[2019-03-31 06:30] LABS: ABS Lymphocytes 0.8 10^3/ul (1.0-4.8); ABS Monocytes 0.3 10^3/ul (0-0.8); ABS Neutrophils 0.8 10^3/ul (1.5-7.7); Eosinophil % 0.9 %; Lymphocyte % 42.7 %; Nucleated Red Blood Cells % 0.6; Platelet Count 311 10^3/uL (150-450)
[2019-03-31] MEDS: Docusate CAP* 100 MG PO SCH (10:29)
[2019-03-31] MEDS: Prochlorperazine TAB* 10 MG PO SCH (10:30)
[2019-03-31] MEDS: Escitalopram * 20 MG TABLET PO SCH (10:30)
[2019-03-31] MEDS: buPROPion SR TAB.SR* 100 MG PO SCH (10:31)
[2019-03-31] MEDS: LETROZOLE 2.5 MG PO SCH (10:32)
[2019-03-31] MEDS: Acetaminophen TAB* 325 MG PO PRN (14:55)
[2019-03-31 15:54] VITALS: BP 119/61
--- NOTE | 2019-05-06 00:15 | DS ---
DISCHARGE SUMMARY: DATE OF ADMISSION: 03/29/19. DATE OF DISCHARGE: 03/31/19. REASON FOR ADMISSION: Severe anemia with shortness of breath and fatigue. HISTORY OF HOSPITAL COURSE: Shanon Bryant is a 73-year-old female with longstanding history of metastatic breast carcinoma. She has been on therapy for this for many years, most recently being on Ibrance and Femara. She is known to have both lung and bone metastases. She had developed increasing fatigue and shortness of breath over the past several days, much worse than previously. She was also noticing significant tachycardia without any exertion. Hemoglobin had fallen to 6.6. She had last been transfused approximately 1 month previously. She was known to have a low B12 level but normal MMA and had been started recently on B12. On physical exam, she had a 3/6 systolic ejection murmur, which was louder than previously. There was concern that given her marked drop in red cells recently that she could possibly bleeding. Stool Hemoccults were arranged for, but she did not have any bowel movements early on in the hospitalization. She had no reports of any melena or bright red blood per rectum. DVT prophylaxis was with subcutaneous heparin as she did not have any active known bleeding in the GI tract. She received a total of 3 units of packed red blood cells and with this, her hemoglobin alison from 6.6 to 7.8. She felt less symptomatic and a decision was made to hold off on future transfusions at that point. She did have 1 stool which was Hemoccult negative prior to discharge. There was concern in regard to her worsening shortness of breath and cardiac status as to whether or not she would be able to tolerate a planned hip surgery which was due in approximately 4 weeks' time. Cardiology was contacted and recommendation was for outpatient consultation. Over the 2 days in the hospital , she did feel significantly stronger and less short of breath and was felt safe to discharge her to home once it is known that she did not have an active GI bleed. DISCHARGE DIAGNOSES: 1. Severe anemia. 2. Metastatic breast cancer. 3. Severe aortic stenosis, requiring cardiology consultation prior to planned hip surgery. 4. Shortness of breath. MEDICATIONS AT THE TIME OF DISCHARGE: Included: 1. Ferrous sulfate 325 mg b.i.d. 2. The patient was also asked to continue on Compazine 10 mg daily as needed. 3. Trazodone 50 mg at h.s. as needed. 4. Tylenol 325 mg q.4 hours p.r.n. 5. Lexapro 20 mg daily. 6. Letrozole 2.5 mg daily. 7. Bupropion 100 mg daily. 8. Pramipexole 0.125 mg at h.s. 9. The patient was asked to hold her Ibrance pending improvement in her white cells. DISCHARGE DISPOSITION: The patient was discharged to home in stable condition and was asked to follow up in our office in 1 to 2 weeks' time with ongoing laboratory studies and potential need for further transfusions. [id number] #: [id number] MTDD
== END 2019-03-31 18:39 | disposition home or self-care (01) | DRG 812 ==
LOC: ED 18:51 → MEDTELE 03-29 00:54 → OBSVTOIN 03-29 10:28
PROVIDERS: ADMIT Internal Medicine; ATTEND Internal Medicine Hematology & Oncology
PROC: 30233N1 Transfusion of Nonautologous Red Blood Cells into Peripheral Vein, Percutaneous Approach (ICD-10-PCS; principal; 2019-03-28)
DX: D53.9 Nutritional anemia, unspecified (principal); C78.00 Secondary malignant neoplasm of unspecified lung; C79.51 Secondary malignant neoplasm of bone; K21.9 Gastro-esophageal reflux disease without esophagitis; F32.9 Major depressive disorder, single episode, unspecified; Z96.641 Presence of right artificial hip joint; C50.912 Malignant neoplasm of unspecified site of left female breast; Z88.8 Allergy status to other drugs, medicaments and biological substances; Z82.3 Family history of stroke; Z80.7 Family history of other malignant neoplasms of lymphoid, hematopoietic and related tissues; Z23 Encounter for immunization
CPT/HCPCS: 36415; 71045; 71046; 80048; 80053; 82272; 82607; 82728; 83540; 83550; 83605; 84484; 85025; 85060; 86850; 86870; 86880; 86900; 86901; 86905; 86922; 87040; 90686; 93005; 93306; 99233; 99283; A9270-GY; G0378; J1642; J1644; J1940; P9040; Q0164

== ENCOUNTER 2019-05-10 12:57 | Emergency (ER) | payer MEDICARE, OTHER ==
--- NOTE | 2019-05-10 13:29 | ED ---
Lower Extremity - HPI Summary HPI Summary: 73-year-old female with significant past medical history of stage IV metastatic breast cancer with metastasis to the lungs and right femur Presents to emergency department with chief complaint of "I dislocated my right hip again". She states this is the fifth time she has done this. She states this occurred in the hospital parking lot when she was leaving an appointment. She states she has 10 out of 10 constant stabbing pain in the right hip. She states she has a surgery scheduled with Dr. Duarte for component replacement due to her multiple dislocations. She endorses diminished range of motion in her hip however has full sensation of the lower extremity. She denies fever, chest pain, shortness of breath, pain with urination or any other trauma associated with her fall. - History of Current Complaint Chief Complaint: EDHipPelvisInjury Stated Complaint: HIP INJURY PER PT Time Seen by Provider: 05/10/19 13:29 Hx Obtained From: Patient Mechanism Of Injury: Fall From A Standing Position Onset of Pain: Immediate Onset/Duration: Hours Severity Initially: Severe Severity Currently: Severe Pain Intensity: 10 Pain Scale Used: 0-10 Numeric Timing: Constant Location: Is Discrete @ - Right hip Character Of Pain: Sharp Associated Signs And Symptoms: Positive: Weakness. 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 Denies: Hx Congestive Heart Failure, Hx Hypertension, Hx Pacemaker/ICD Comment Only: Other Cardiovascular Problems/Disorders - PORT 09/2013 Respiratory History: Reports: Hx Pleural Effusion, Other Respiratory Problems/ Disorders - SOB ON EXCERTION, HAS BEEN ON CHEMO Denies: Hx Asthma GI History: Reports: Hx Gastroesophageal Reflux Disease, Hx Hiatal Hernia History: Denies: Hx Dialysis, Hx Renal Disease Musculoskeletal History: Reports: Other Musculoskeletal History - right hip replacement Denies: Hx Rheumatoid Arthritis Sensory History: Reports: Hx Contacts or Glasses Denies: Hx Hearing Aid Opthamlomology History: Reports: Hx Contacts or Glasses Psychiatric History: Reports: Hx Depression Denies: Hx Panic Disorder - Cancer History Cancer Type, Location and Year: Left breast CA, with mets Hx Chemotherapy: Yes Hx Radiation Therapy: No - Surgical History Surgery Procedure, Year, and Place: R hip replacement 2009 [facility],Hiatal hernia repair and [place] fundoplication (GERD) 2007,R inguinal exploratory surgery,[facility], POWER PORT RIGHT CHEST WALL; Hx Anesthesia Reactions: No Infectious Disease History: No Infectious Disease History: Denies: Traveled Outside the [place] in Last 30 Days - Family History Known Family History: Positive: Other - CVA, lymphoma - Social History Alcohol Use: None Alcohol Amount: 1-2 x per year Substance Use Type: Reports: None Hx Tobacco Use: No Smoking Status (MU): Never Smoked Tobacco Review of Systems Constitutional: Negative Eyes: Negative ENT: Negative Cardiovascular: Negative Respiratory: Negative Gastrointestinal: Negative Genitourinary: Negative Positive: Arthralgia Skin: Negative Neurological: Negative Psychological: Normal All Other Systems Reviewed And Are Negative: Yes Physical Exam Triage Information Reviewed: Yes Vital Signs On Initial Exam: Initial Vitals Temp Pulse Resp BP Pulse Ox 98.2 F 96 16 121/67 96 05/10/19 13:09 05/10/19 13:09 05/10/19 13:09 05/10/19 13:09 05/10/19 13:09 Vital Signs Reviewed: Yes Appearance: Positive: Well-Appearing, No Pain Distress, Well-Nourished, Pain Distress, Obese Skin: Positive: Warm, Skin Color Reflects Adequate Perfusion Eyes: Positive: EOMI, MEE ENT: Positive: Hearing grossly normal Respiratory/Lung Sounds: Positive: Clear to Auscultation, Breath Sounds Present Cardiovascular: Positive: RRR, S1, S2 Abdomen Description: Positive: Soft Musculoskeletal: Positive: Limited @ - Right hip, Pain @ - Right hip, Other - There is no evidence of ecchymosis, edema, erythema to the right hip. There is no appreciable gross deformity due to the patient's body habitus. She is favoring the right hip and is in exquisite pain. She has decreased range of motion in the right hip joint. Capillary refill is brisk at the right toes and dorsalis pedis pulses 2+. She has full sensation of the lower extremities bilaterally. Neurological: Positive: Sensory/Motor Intact, Alert, Oriented to Person Place, Time, Unable to Assess Gait, Facial Symmetry, Speech Normal Psychiatric: Positive: Anxious AVPU Assessment: Alert Procedures - Sedation Patient Received Moderate/Deep Sedation with Procedure: Yes Are You The Provider Who Administered The Sedation: Assumption of Provider Whom Sedated Patient: Edwin Monroy - Vital Signs Vital Signs Temp Pulse Resp BP Pulse Ox 05/10/19 13:09 98.2 F 96 16 121/67 96 - Laboratory Result Diagrams: 05/10/19 14:42 05/10/19 14:42 Lab Statement: Any lab studies that have been ordered have been reviewed, and results considered in the medical decision making process. Lower Extremity Course/Dx - Course Course Of Treatment: Patient was evaluated in the emergency department for right hip dislocation. The patient was seen and examined. Her vital signs are stable and she is afebrile. Laboratory studies as well as an x-ray of the right hip was done. X-ray revealed dislocation of the right hip. Laboratory studies revealed significant anemia with a hemoglobin of 6.5 however she is currently asymptomatic and this is her baseline. Dr. Duarte was consulted at 1509 as she is scheduled for surgery with him due to her recurrent dislocation. He instructed us to reduce the hip and to have her follow-up with him. Dr. Thacker was consulted at 1537 in regards to her H&H. Dr. Thacker stated as long as she remained asymptomatic she may follow up for her scheduled infusion tomorrow 05/11/19 for 2 units of red blood cells. The patient's hip was reduced with no complications using conscious sedation done by Dr. Monroy, emergency room attending physician. Patient in August from conscious sedation with no difficulty. She was placed in a knee immobilizer and told to follow-up with orthopedics and with the transfusion clinic tomorrow for her scheduled appointment. She was told to return to the emergency department immediately if she developed any new or worsening symptoms - Diagnoses Differential Diagnosis/HQI/PQRI: Positive: Fracture (Closed), Sprain, Strain, Other - dislocation Provider Diagnoses: Hip dislocation, right, Anemia Discharge ED - Sign-Out/Discharge Documenting (check all that apply): Sign-Out Patient Signing out patient TO: Katia Walker Receiving patient FROM: Chau Bernard - Discharge Plan Condition: Improved Disposition: HOME Patient Education Materials: Hip Dislocation (ED), Procedural Sedation (ED) Referrals: Gustavo Lincoln MD [Primary Care Provider] - Harrison Duarte MD [Medical Doctor] - 1 Day Andre Thacker MD [Medical Doctor] - 1 Day Additional Instructions: You were seen in the emergency department because you dislocated your right hip. Your hip was put back in place and your given a knee immobilizer which you are to wear at all times (including sleeping) until you follow up with orthopedics. Please follow-up with orthopedics in the next 1-2 days for further evaluation of your problem. It was also noted that you are rather anemic, please follow-up with your appointment tomorrow to have a blood transfusion. Please return to the emergency department immediately if you develop any new or worsening symptoms. - Billing Disposition and Condition Condition: IMPROVED Disposition: Home
[2019-05-10] MEDS ORDERED: Morphine 4 MG/ML VIAL (1 ml) 4 MG/ML VIAL IV ONE (13:44)
[2019-05-10] MEDS ORDERED: Ondansetron INJ* 2 MG/ML VIAL IV ONE (13:45)
[2019-05-10] MEDS ORDERED: Lactated Ringers 1000 ML Bag* 1,000 ML IV SCH (14:00)
[2019-05-10] MEDS ORDERED: KETAMINE HCL* 50 MG/ML 10 ML VIAL IV ONE (14:15)
[2019-05-10] MEDS ORDERED: NS 0.9% 1000 ML** 1,000 ML IV ONE (14:24)
[2019-05-10 14:54] LABS: Hematocrit 20 % (35-47); Hemoglobin 6.5 g/dL (12.0-16.0); Mean Corpuscular HGB Conc 33 g/dL (31-36); Mean Corpuscular Hemoglobin 33 pg (27-31); Mean Corpuscular Volume 101 fL (80-97); Mean Platelet Volume 10.4 fL (7.4-10.4); Platelet Count 512 10^3/uL (150-450); Red Blood Count 1.98 10^6 /uL (3.70-4.87); Red Cell Distribution Width 28 % (10-15)
[2019-05-10 15:00] LABS: Activated Partial Thrombo Time 32.4 seconds (26.0-38.0); INR 1.57 (0.82-1.09)
[2019-05-10 15:11] LABS: Albumin 3.8 g/dL (3.2-5.2); Calcium 8.9 mg/dL (8.6-10.3); Potassium 3.6 mmol/L (3.5-5.0); Total Bilirubin 2.5 mg/dL (0.2-1.0)
[2019-05-10 15:16] LABS: Acanthocytes 1+
[2019-05-10 15:17] LABS: Albumin/Globulin Ratio 1.7 (1-3); BUN/Creatinine Ratio 19.8 (8-20); EGFR Non-African American 64.5 (>60); Globulin 2.2 g/dL (2-4)
[2019-05-10 15:18] LABS: ABS Lymphocytes 0.7 10^3/ul (1.0-4.8); ABS Monocytes 0.1 10^3/ul (0-0.8); Eosinophil % 0.3 %; Lymphocyte % 25.2 %; Nucleated Red Blood Cells % 0.5
--- NOTE | 2019-05-10 18:15 | ED ---
Re-Evaluation - Re-Evaluation First Eval Re-Evaluation Time: 18:25 Comment: patient back to baseline. she states that oxygen is normal at 90s for months. She does not have oxygen at home. discussed with dr neville who says can discharge. Second Eval Re-Evaluation Time: 18:59 Comment: patient ambulated and oxygen is at 91 which is her baseline. Course/Dx - Course Course Of Treatment: Patient was evaluated in the emergency department for right hip dislocation. The patient was seen and examined. Her vital signs are stable and she is afebrile. Laboratory studies as well as an x-ray of the right hip was done. X-ray revealed dislocation of the right hip. Laboratory studies revealed significant anemia with a hemoglobin of 6.5 however she is currently asymptomatic and this is her baseline. Dr. Duarte was consulted at 1509 as she is scheduled for surgery with him due to her recurrent dislocation. He instructed us to reduce the hip and to have her follow-up with him. Dr. Thacker was consulted at 1537 in regards to her H&H. Dr. Thacker stated as long as she remained asymptomatic she may follow up for her scheduled infusion tomorrow 05/11/19 for 2 units of red blood cells. The patient's hip was reduced with no complications using conscious sedation done by Dr. Monroy, emergency room attending physician. Patient in August from conscious sedation with no difficulty. She was placed in a knee immobilizer and told to follow-up with orthopedics and with the transfusion clinic tomorrow for her scheduled appointment. She was told to return to the emergency department immediately if she developed any new or worsening symptoms - Diagnoses Provider Diagnoses: Hip dislocation, right, Anemia Discharge ED - Sign-Out/Discharge Documenting (check all that apply): Patient Departure, Receiving Sign-Out Receiving patient FROM: Chau Bernard - Discharge Plan Condition: Improved Disposition: HOME Patient Education Materials: Hip Dislocation (ED), Procedural Sedation (ED) Referrals: Harrison Duarte MD [Medical Doctor] - 1 Day Gustavo Lincoln MD [Primary Care Provider] - Andre Thacker MD [Medical Doctor] - 1 Day Additional Instructions: You were seen in the emergency department because you dislocated your right hip. Your hip was put back in place and your given a knee immobilizer which you are to wear at all times (including sleeping) until you follow up with orthopedics. Please follow-up with orthopedics in the next 1-2 days for further evaluation of your problem. It was also noted that you are rather anemic, please follow-up with your appointment tomorrow to have a blood transfusion. Please return to the emergency department immediately if you develop any new or worsening symptoms. - Billing Disposition and Condition Condition: IMPROVED Disposition: Home
--- NOTE | 2019-05-10 18:21 | ED ---
ED Sedation - Procedural Sedation/Analgesia Sedation Course: RT Present, Emergency Airway Equipment Available, Informed Consent Obtained, Time Out Completed, End-tidal Capnography Utilized Adverse Reactions Experienced by Patient: None Mallampati Classification: Class III ASA Classification: Class III: Severe Systemic Disease Diagnosis: Hip dislocation Pre-Procedural Heart: S1 and S2 Pre-Procedural Lungs: Clear Auscultation Comment/Plan of Care: Hip dislocation reduction Provider Procedure Attestation: With My Signature Below, I Attest to have Personally Reviewed and Agree with the Pre-Sedation History and Pre-Service Assessment Update Cleared for Moderate Sedation: Yes Pre-Procedural Diagnosis: Hip dislocation Post-Procedural Diagnosis: Hip dislocation Procedure: Hip dislocation reduction Estimated Blood Loss: None Specimen(s): None Findings: None Implants/Tubes/Drains Placed: None
[2019-05-10 19:03] VITALS: BP 123/54
== END 2019-05-10 19:00 | disposition home or self-care (01) ==
LOC: ED 12:57
DX: T84.020A Dislocation of internal right hip prosthesis, initial encounter (principal); Y83.8 Other surgical procedures as the cause of abnormal reaction of the patient, or of later complication, without mention of misadventure at the time of the procedure; Y92.238 Other place in hospital as the place of occurrence of the external cause; C50.919 Malignant neoplasm of unspecified site of unspecified female breast; C78.00 Secondary malignant neoplasm of unspecified lung; C79.51 Secondary malignant neoplasm of bone; D64.9 Anemia, unspecified; I38 Endocarditis, valve unspecified; K21.9 Gastro-esophageal reflux disease without esophagitis; F32.9 Major depressive disorder, single episode, unspecified
CPT/HCPCS: 27266; 36415; 80053; 85025; 85610; 85730; 96365; 96366; 96375; 99283; J2270; J2405

== ENCOUNTER 2019-07-26 19:02 | Emergency (ER) | payer MEDICARE, OTHER ==
[2019-07-26] MEDS ORDERED: fentaNYL* 50 MCG/ML 2 ML VIAL (100 MCG VIAL) IV SLOW PU ONE ×2 (19:18→21:23)
[2019-07-26 20:14] LABS: INR 1.53 (0.82-1.09)
[2019-07-26 20:17] LABS: Hematocrit 23 % (35-47); Hemoglobin 8.2 g/dL (12.0-16.0); Mean Corpuscular HGB Conc 36 g/dL (31-36); Mean Corpuscular Hemoglobin 32 pg (27-31); Mean Corpuscular Volume 89 fL (80-97); Mean Platelet Volume 8.3 fL (7.4-10.4); Platelet Count 29 10^3/uL (150-450); Red Blood Count 2.53 10^6 /uL (3.70-4.87); Red Cell Distribution Width 14 % (10-15); White Blood Count 0.7 10^3/uL (3.5-10.8)
[2019-07-26 20:24] LABS: Albumin 3.6 g/dL (3.2-5.2); Albumin/Globulin Ratio 1.4 (1-3); BUN/Creatinine Ratio 22.1 (8-20); EGFR African American 102.3 (>60); EGFR Non-African American 84.6 (>60); Globulin 2.5 g/dL (2-4); Potassium 4.2 mmol/L (3.5-5.0); Total Bilirubin 1.9 mg/dL (0.2-1.0); Total Protein 6.1 g/dL (6.4-8.9)
[2019-07-26 20:40] LABS: ABS Lymphocytes 0.2 10^3/ul (1.0-4.8); ABS Monocytes 0.1 10^3/ul (0-0.8); ABS Neutrophils 0.4 10^3/ul (1.5-7.7); Lymphocyte % 30.5 %
--- NOTE | 2019-07-26 20:52 | ED ---
Lower Extremity - HPI Summary HPI Summary: Patient is a 73 y/o F presenting to [facility] with complaints of right hip pain. The patient had awoken from napping in a reclining chair, stretched her right leg out straight and felt her hip pop out of place. Patient notes Hx of right hip replacement around nine years ago. However, the patient has been having issues with the right hip becoming displaced for the past three years. She states that surgery was elected against due to concerns regarding abnormal lab values. 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 She states that her current regiment of chemotherapy involves receiving seven injections during a nine day period as well as a daily oral chemotherapy pill. Patient also claims that she requires regular blood and platelet transfusions. Currently, pain is rated around a 3/10 but patient notes that movement aggravates the pain such that it is "unbearable". Home medications and allergies are reviewed. No fever as vitals show temp of 97.3 F. - History of Current Complaint Chief Complaint: EDHipPelvisInjury Stated Complaint: HIP PAIN PER EMS Time Seen by Provider: 07/26/19 19:40 Hx Obtained From: Patient Mechanism Of Injury: Other - stretching leg out Onset of Pain: Prior to Arrival Onset/Duration: Still Present Severity Initially: Severe Severity Currently: Mild Pain Intensity: 3 Pain Scale Used: 0-10 Numeric Timing: Constant Location: Is Discrete @ - right hip pain Associated Signs And Symptoms: Positive: Other - positive - right hip pain Aggravating Factor(s): Movement - Allergies/Home Medications Allergies/Adverse Reactions: Allergies Allergy/AdvReac Type Severity Reaction Status Date / Time Adhesive Tape AdvReac Intermediate Rash And Verified 07/16/19 16:55 [Tegaderm Dressing] Itching Home Medications: Home Medications Levofloxacin TAB* [Levaquin TAB*] 500 mg PO DAILY 07/26/19 [History Confirmed ] Pramipexole TAB* [Mirapex TAB*] 0.25 mg PO BEDTIME 07/26/19 [History Confirmed 07/26/19] Venetoclax [Venclexta] 200 mg PO BID 07/26/19 [History Confirmed 07/26/19] buPROPion SR TAB* [Wellbutrin SR TAB*] 100 mg PO DAILY 07/26/19 [History Confirmed 07/26/19] PMH/Surg Hx/FS Hx/Imm Hx Endocrine/Hematology History: Reports: Hx Anemia Denies: Hx Diabetes, Hx Systemic Lupus Erythematosus Cardiovascular History: Reports: 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 Denies: Hx Congestive Heart Failure, Hx Hypertension, Hx Pacemaker/ICD Comment Only: Other Cardiovascular Problems/Disorders - PORT 09/2013 Respiratory History: Reports: Hx Pleural Effusion, Other Respiratory Problems/ Disorders - SOB ON EXCERTION, HAS BEEN ON CHEMO Denies: Hx Asthma GI History: Reports: Hx Gastroesophageal Reflux Disease, Hx Hiatal Hernia History: Denies: Hx Dialysis, Hx Renal Disease Musculoskeletal History: Reports: Other Musculoskeletal History - right hip replacement Denies: Hx Rheumatoid Arthritis Sensory History: Reports: Hx Contacts or Glasses Denies: Hx Hearing Aid Opthamlomology History: Reports: Hx Contacts or Glasses Psychiatric History: Reports: Hx Depression Denies: Hx Panic Disorder - Cancer History Cancer Type, Location and Year: Left breast CA, with mets Hx Chemotherapy: Yes Hx Radiation Therapy: No - Surgical History Surgery Procedure, Year, and Place: R hip replacement 2009 [facility],Hiatal hernia repair and [place] fundoplication (GERD) 2007,R inguinal exploratory surgery,[facility], POWER PORT RIGHT CHEST WALL; Hx Anesthesia Reactions: No - Immunization History Date of Influenza Vaccine: 03/2019 Infectious Disease History: No Infectious Disease History: Denies: Traveled Outside the [place] in Last 30 Days - Family History Known Family History: Positive: Other - CVA, lymphoma - Social History Alcohol Use: None Alcohol Amount: 1-2 x per year Substance Use Type: Reports: None Hx Tobacco Use: No Smoking Status (MU): Never Smoked Tobacco Review of Systems Negative: Fever - No fever as vitals show temp of 97.3 F. Musculoskeletal: Other - positive - right hip pain All Other Systems Reviewed And Are Negative: Yes Physical Exam - Summary Physical Exam Summary: General: Well-developed, Well-nourished, Elderly female. Mild discomfort after having received fentanyl. HEENT: Normocephalic, Atraumatic. Eyes: Conjuctiva normal, PERRL. Oropharynx: Clear, mucous membranes moist, (-) exudates. Neck: Soft, FROM, (-) lymphadenopathy, (-) thyromegaly, (-) JVD. Cardiovascular: Normal sinus rhythm, (-) murmur. Lungs: Clear to auscultation bilaterally (-) wheezes, (-) rales, (-) rhonchi. Abdomen: Soft, non-tender, non-distended, (-) organomegaly, normal bowel sounds. Back: (-) CVA tenderness Extremities: Right leg is shortened and externally rotated. Normal pulses, sensation, and capillary refill distally. No edema. Skin: Warm, dry, (-) rash. Neuro: Alert and oriented x3. No sensory deficit. Normal strength, normal sensation. Psychiatric: Mood normal, affect normal. Triage Information Reviewed: Yes Vital Signs On Initial Exam: Initial Vitals Temp Pulse Resp BP Pulse Ox 97.3 F 91 22 107/61 97 07/26/19 19:04 07/26/19 19:04 07/26/19 19:04 07/26/19 19:04 07/26/19 19:04 Vital Signs Reviewed: Yes Procedures - Procedure Summary Procedure Summary: Procedural sedation was done by Dr. Rodriguez. Dr. Monroy performed the reduction. - Sedation Patient Received Moderate/Deep Sedation with Procedure: Yes Are You The Provider Who Administered The Sedation: Yes Name of Provider Whom Sedated Patient: Lili Rodriguez - Procedural Sedation/Analgesia Sedation Course: RT Present, Emergency Airway Equipment Available, Informed Consent Obtained, Time Out Completed Adverse Reactions Experienced by Patient: None Mallampati Classification: Class II ASA Classification: Class IV: Severe Systemic Disease/Constant Threat to Health Pre-Procedural Heart: No Murmur Pre-Procedural Lungs: Clear Auscultation Comment/Plan of Care: Versed and Fentanyl for sedation, not completely effective. Propofol added. IV fluids. Provider Procedure Attestation: With My Signature Below, I Attest to have Personally Reviewed and Agree with the Pre-Sedation History and Pre-Service Assessment Update Cleared for Moderate Sedation: Yes Pre-Procedural Diagnosis: right hip dislocation Post-Procedural Diagnosis: right hip dislocation, reduced Procedure: joint reduction Estimated Blood Loss: None Specimen(s): None Findings: None Implants/Tubes/Drains Placed: None Diagnostics - Vital Signs Vital Signs Temp Pulse Resp BP Pulse Ox 07/26/19 20:32 99 13 128/65 97 07/26/19 20:02 97 13 139/66 96 07/26/19 20:00 98 17 96 07/26/19 19:32 94 14 144/68 94 07/26/19 19:25 22 02/10/20 19:11 91 97 07/26/19 19:04 97.3 F 91 22 107/61 97 - Laboratory Lab Results: Lab Results 07/26/19 07/26/19 07/26/19 Range/Units 20:01 20:01 20:01 WBC 0.7 L (3.5-10.8) 10^3/uL RBC 2.53 L (3.70-4.87) 10^6 /uL Hgb 8.2 L (12.0-16.0) g/dL Hct 23 L (35-47) % MCV 89 (80-97) fL MCH 32 H (27-31) pg MCHC 36 (31-36) g/dL RDW 14 (10-15) % Plt Count 29 L (150-450) 10^3/uL MPV 8.3 (7.4-10.4) fL Neut % (Auto) 55.4 % Lymph % (Auto) 30.5 % [place] % (Auto) 13.9 % Eos % (Auto) 0.0 % Baso % (Auto) 0.2 % Absolute Neuts (auto) 0.4 L* (1.5-7.7) 10^3/ul Absolute Lymphs (auto) 0.2 L (1.0-4.8) 10^3/ul Absolute Monos (auto) 0.1 (0-0.8) 10^3/ul Absolute Eos (auto) 0.0 (0-0.6) 10^3/ul Absolute Basos (auto) 0.0 (0-0.2) 10^3/ul Absolute Nucleated RBC 0.0 10^3/ul Nucleated RBC % 0.0 INR (Anticoag Therapy) (0.82-1.09) Sodium 138 (135-145) mmol/L Potassium 4.2 (3.5-5.0) mmol/L Chloride 104 (101-111) mmol/L Carbon Dioxide 31 (22-32) mmol/L Anion Gap 3 (2-11) mmol/L BUN 15 (6-24) mg/dL Creatinine 0.68 (0.51-0.95) mg/dL Est GFR ( Amer) 102.3 (>60) Est GFR (Non-Af Amer) 84.6 (>60) BUN/Creatinine Ratio 22.1 H (8-20) Glucose 111 H (70-100) mg/dL Lactic Acid 0.8 (0.5-2.0) mmol/L Calcium 9.0 (8.6-10.3) mg/dL Total Bilirubin 1.90 H (0.2-1.0) mg/dL AST 11 L (13-39) U/L ALT 7 (7-52) U/L Alkaline Phosphatase 127 H (34-104) U/L Total Protein 6.1 L (6.4-8.9) g/dL Albumin 3.6 (3.2-5.2) g/dL Globulin 2.5 (2-4) g/dL Albumin/Globulin Ratio 1.4 (1-3) 07/26/19 Range/Units 20:01 WBC (3.5-10.8) 10^3/uL RBC (3.70-4.87) 10^6 /uL Hgb (12.0-16.0) g/dL Hct (35-47) % MCV (80-97) fL MCH (27-31) pg MCHC (31-36) g/dL RDW (10-15) % Plt Count (150-450) 10^3/uL MPV (7.4-10.4) fL Neut % (Auto) % Lymph % (Auto) % [place] % (Auto) % Eos % (Auto) % Baso % (Auto) % Absolute Neuts (auto) (1.5-7.7) 10^3/ul Absolute Lymphs (auto) (1.0-4.8) 10^3/ul Absolute Monos (auto) (0-0.8) 10^3/ul Absolute Eos (auto) (0-0.6) 10^3/ul Absolute Basos (auto) (0-0.2) 10^3/ul Absolute Nucleated RBC 10^3/ul Nucleated RBC % INR (Anticoag Therapy) 1.53 H (0.82-1.09) Sodium (135-145) mmol/L Potassium (3.5-5.0) mmol/L Chloride (101-111) mmol/L Carbon Dioxide (22-32) mmol/L Anion Gap (2-11) mmol/L BUN (6-24) mg/dL Creatinine (0.51-0.95) mg/dL Est GFR ( Amer) (>60) Est GFR (Non-Af Amer) (>60) BUN/Creatinine Ratio (8-20) Glucose (70-100) mg/dL Lactic Acid (0.5-2.0) mmol/L Calcium (8.6-10.3) mg/dL Total Bilirubin (0.2-1.0) mg/dL AST (13-39) U/L ALT (7-52) U/L Alkaline Phosphatase (34-104) U/L Total Protein (6.4-8.9) g/dL Albumin (3.2-5.2) g/dL Globulin (2-4) g/dL Albumin/Globulin Ratio (1-3) Result Diagrams: 07/26/19 20:01 07/26/19 20:01 Lab Statement: Any lab studies that have been ordered have been reviewed, and results considered in the medical decision making process. - Radiology RIGHT HIP/PELVIS X-RAY Radiology Interpretation Completed By: ED Physician Summary of Radiographic Findings: Dislocated prosthetic hip, pending official report. POST REDUCTION HIP X-RAY Radiology Interpretation Completed By: ED Physician Summary of Radiographic Findings: Successful reduction of prosthetic hip, pending official report. - EKG 2100 Cardiac Rate: NL - rate of 96 BPM EKG Rhythm: Sinus Rhythm Summary of EKG Findings: EKG showed NSR with rate of 96 BPM, no STEMI. ED physician has reviewed and interpreted this EKG. Lower Extremity Course/Dx - Course Course Of Treatment: 73-year-old female presents by ambulance from home with right hip pain. Patient states she has severe right hip pain and has got her right hip out of joint. She notes that she has done this 5 times previously. She has prosthesis of the right hip. Last time this happened she was going to have surgery and was working with orthopedic. However at that time she was diagnosed with leukemia. Her platelets were low. White count was low. Hemoglobin was low. She is also on chemotherapy for breast cancer. Patient has normal sensation and pulses and capillary refill distally in her right lower extremity. Has relief with fentanyl. Discussed with orthopedics on-call , Dr. Allen. He recommended reduction with conscious sedation and right knee brace to be applied. He states if she wears a knee immobilizer at all times it will be very hard for her hip to dislocate. Dislocation was confirmed by x- ray. Reduction was done by Dr. Monroy. I performed conscious sedation. Initially used fentanyl and Versed. That was unsuccessful and propofol was added. Patient tolerated well. Had transient low blood pressure was given fluids for that. Was discharged home with the knee brace. Postreduction films are satisfactory. Patient follow-up with orthopedics. Follow-up sooner for any worsening symptoms. Patient received 100 mcg Fentanyl IV for pain control. Moderate sedation was done with Versed 5 mg and Fentanyl 50 mcg IV. This was not completely effective, 40 mg IV Propofol administered. - Diagnoses Provider Diagnoses: Recurrent dislocation, right hip - Physician Notifications Discussed Care Of Patient With: Juan Diego Allen Time Discussed With Above Provider: 21:00 Instructed by Provider To: Other - Patient's case was discussed with Dr. Allen , sedation, reduction, discharge, and follow-up with Dr. Brush tomorrow is advised. Discharge ED - Sign-Out/Discharge Documenting (check all that apply): Patient Departure - discharge - Discharge Plan Condition: Stable Disposition: HOME Patient Education Materials: Moderate Sedation (ED), Hip Dislocation (ED) Referrals: Gustavo Lincoln MD [Primary Care Provider] - Harrison Brush MD [Medical Doctor] - 1 Day Additional Instructions: PLEASE RETURN TO ED FOR ANY NEW OR WORSENING SYMPTOMS. PLEASE FOLLOW UP WITH DR. BRUSH, ORTHOPEDICS, TOMORROW. - Billing Disposition and Condition Condition: STABLE Disposition: Home - Attestation Statements Document Initiated by Scribe: Yes Documenting Scribe: RENE GARIBAY Provider For Whom Tk is Documenting (Include Credential): LILI RODRIGUEZ MD Scribe Attestation: RENE Pelayo, scribed for LILI RODRIGUEZ MD on 07/27/19 at 0344. Scribe Documentation Reviewed: Yes Provider Attestation: The documentation as recorded by the RENE del rio accurately reflects the service I personally performed and the decisions made by me, LILI RODRIGUEZ MD Status of Scribe Document: Viewed
[2019-07-26] MEDS ORDERED: Midazolam* 1 MG/ML 10 ML VIAL (10 MG) IV SLOW PU ONE (21:23)
[2019-07-26] MEDS ORDERED: Naloxone* 0.4 MG/ML 10 ML VIAL ONE (21:34)
[2019-07-26] MEDS ORDERED: Propofol* 10 MG/ML 20 ML BTL IV PUSH ONE ×3 (21:49→22:10)
[2019-07-26] MEDS ORDERED: Propofol* 10 MG/ML 100 ML BTL IV ONE (22:00)
--- NOTE | 2019-07-26 22:13 | ED ---
ED Procedures - Procedure Summary Procedure Summary: Procedural sedation was done by Dr. Rodriguez. Dr. Monroy performed the reduction. - Joint Reduction Right Hip Joint Reduction Site: hip (R) Conscious Sedation: Yes - Dr. Rodriguez performed the sedation. Reduction Attempts: 1 Pre-Procedure NV Exam: Yes Post Joint Reduction Film: joint reduced - Attestation Statements Document Initiated by Scribe: Yes Documenting Scribe: Corie Ruiz Provider For Whom Scribe is Documenting (Include Credential): Dr. Edwin Monroy MD Scribe Attestation: ICorie, scribed for Dr. Edwin Monroy MD on 07/26/19 at 2225. Status of Scribe Document: Ready
[2019-07-27 00:17] VITALS: BP 107/59
== END 2019-07-27 00:29 | disposition home or self-care (01) ==
LOC: ED 19:02
DX: M24.451 Recurrent dislocation, right hip (principal); M25.551 Pain in right hip; I38 Endocarditis, valve unspecified; J90 Pleural effusion, not elsewhere classified; F32.9 Major depressive disorder, single episode, unspecified; Z85.3 Personal history of malignant neoplasm of breast; Z92.21 Personal history of antineoplastic chemotherapy; Z96.641 Presence of right artificial hip joint
CPT/HCPCS: 27250; 36415; 80053; 83605; 85025; 85610; 93005; 96374; 96375; 96376; 99285; J2250; J2310; J2704; J3010